=== PATIENT | female | born 1995 | race Caucasian/White ===

== ENCOUNTER 2016-05-27 21:38 | Emergency (ER) | payer OTHER | END 2016-05-27 22:51 | disposition home or self-care (01) | DX: F32.89 Other specified depressive episodes (principal); Z91.5 Personal history of self-harm; F41.0 Panic disorder [episodic paroxysmal anxiety] ==

== ENCOUNTER 2017-02-24 08:00 | Outpatient (CLI) | payer OTHER | END 2017-02-24 08:01 | disposition home or self-care (01) | LOC: LAB.F 08:00 | PROVIDERS: ATTEND Family Medicine | DX: N39.0 Urinary tract infection, site not specified (principal) | CPT/HCPCS: 87086 ==

== ENCOUNTER 2017-08-05 18:06 | Emergency (ER) | payer OTHER ==
[2017-08-05 18:58] LABS: BILIRUBIN,URINE NEGATIVE (NEGATIVE); GLUCOSE, URINE (UA) NEGATIVE (NEGATIVE); KETONES,URINE (UA) NEGATIVE (NEGATIVE); LEUKOCYTE ESTERASE, URINE TRACE (NEGATIVE); NITRITE,URINE NEGATIVE (NEGATIVE); OCCULT BLOOD,URINE MODERATE (NEGATIVE); PROTEIN,URINE NEGATIVE (NEGATIVE); UROBILINOGEN,URINE 0.2 (NORMAL) E.U./dL (NORMAL)
[2017-08-05 19:00] LABS: BASOPHILS % (AUTO) 0.5 %; EOSINOPHILS # (AUTO) 0.2 10^3/uL (0.0-0.7); EOSINOPHILS % (AUTO) 2.3 %; HGB - HEMOGLOBIN 13.8 g/dL (12.0-16.0); LYMPHOCYTES % (AUTO) 26.6 %; MEAN CORPUSCULAR HEMOGLOBIN 28.9 pg (27.0-31.0); MEAN CORPUSCULAR HGB CONC 32.4 g/dL (32.0-36.0); MEAN CORPUSCULAR VOLUME 89.4 fL (81.0-99.0); MEAN PLATELET VOLUME 7.5 fL (7.9-10.8); MONOCYTES # (AUTO) 0.5 10^3/uL (0.0-1.0); MONOCYTES % (AUTO) 7.2 %; NEUTROPHILS # (AUTO) 4.7 10^3/uL (1.5-6.6); NEUTROPHILS % (AUTO) 63.4 %; PLT - PLATELET COUNT 347 10^3/uL (130-450); RED BLOOD COUNT 4.76 10^6/uL (4.20-5.40); RED CELL DISTRIBUTION WIDTH 13.2 % (12.0-15.0); WHITE BLOOD COUNT 7.5 x10^3/uL (4.8-10.8)
[2017-08-05 19:01] LABS: CLARITY,URINE CLEAR (CLEAR); HCG UR QUAL NEGATIVE
[2017-08-05] MEDS ORDERED: ACETAMINOPHEN 325 MG TABLET PO STA (19:04)
--- NOTE | 2017-08-05 19:07 | ED Physician Documentation ---
PD HPI ABD PAIN - Stated complaint Stated Complaint: UPPER ABD PX - Chief complaint Chief Complaint: Abd Pain - History obtained from History obtained from: Patient - History of Present Illness Timing - onset: Other (4 days intermittent RUQ pain radiating to back. No association with eating. Worse with deep breathing, no SOB. She is on control but denies any pedal edema or calf pain. She had an ultrasound done in [place] yesterday which she reports was normal.) Review of Systems Constitutional: denies: Fever, Chills Nose: denies: Rhinorrhea / runny nose, Congestion Cardiac: denies: Chest pain / pressure, Palpitations Respiratory: reports: Cough (mild). denies: Dyspnea GI: reports: Abdominal Pain, Nausea, Diarrhea (once today). denies: Vomiting Musculoskeletal: denies: Neck pain, Back pain PD PAST MEDICAL HISTORY - Past Medical History Psych: Depression, Anxiety, Panic attacks - Past Surgical History Past Surgical History: No - Present Medications Home Medications: Ambulatory Orders Medication Instructions Recorded Confirmed Bcp 08/05/17 Bupropion HCl [Wellbutrin Xl] 450 mg PO 08/05/17 Dextroamphetamine/Amphetamine 10 mg PO 08/05/17 [Adderall 10 mg Tablet] HYDROcod/ACETAM 5/325 [Ames 5/325] 1 - 2 ea PO Q6H PRN #10 tablet 08/05/17 Prazosin HCl [Minipress] 4 mg PO 08/05/17 busPIRone [Buspar] 15 mg PO BID 08/05/17 08/05/17 - Allergies Allergies/Adverse Reactions: Allergies Allergy/AdvReac Type Severity Reaction Status Date / Time No Known Drug Allergies Allergy Verified 08/05/17 18:14 - Social History Does the pt smoke?: No Smoking Status: Never smoker Does the pt drink ETOH?: No Does the pt have substance abuse?: No - Immunizations Immunizations are current?: Yes - POLST Patient has POLST: No PD ED PE NORMAL - Vitals Vital signs reviewed: Yes - General General: Alert and oriented X 3, No acute distress - HEENT HEENT: PERRL, EOMI - Neck Neck: Supple, no meningeal sign, No bony TTP - Cardiac Cardiac: RRR, No murmur - Respiratory Respiratory: No respiratory distress, Clear bilaterally - Abdomen Abdomen: Other (Mild RUQ TTP) - Back Back: No CVA TTP, No spinal TTP - Derm Derm: Normal color, Warm and dry - Extremities Extremities: No edema, No calf tenderness / cord - Neuro Neuro: Alert and oriented X 3, Normal speech - Psych Psych: Normal mood, Normal affect Results - Vitals Vitals: Vital Signs - 24 hr 08/05/17 18:12 Temperature 36.5 C Heart Rate 94 Respiratory 18 Rate Blood Pressure 145/91 H O2 Saturation 100 Oxygen O2 Source Room air - Labs Labs: Laboratory Tests 08/05/17 08/05/17 08/05/17 18:50 18:55 18:55 WBC 7.5 RBC 4.76 Hgb 13.8 Hct 42.5 MCV 89.4 MCH 28.9 MCHC 32.4 RDW 13.2 Plt Count 347 MPV 7.5 L Neut # 4.7 Lymph # 2.0 Carson # 0.5 Eos # 0.2 Baso # 0.0 Absolute Nucleated RBC 0.00 Nucleated RBC % 0.0 D-Dimer Sodium 136 Potassium 4.0 Chloride 105 Carbon Dioxide 23 Anion Gap 8.0 BUN 12 Creatinine 0.8 Estimated GFR (MDRD) 90 Glucose 90 Calcium 9.4 Total Bilirubin 1.0 AST 16 ALT 33 Alkaline Phosphatase 37 L Total Protein 7.4 Albumin 4.1 Globulin 3.3 Albumin/Globulin Ratio 1.2 Lipase 36 Urine Color YELLOW Urine Clarity CLEAR Urine pH 5.0 Ur Specific [place] 1.025 Urine Protein NEGATIVE Urine Glucose (UA) NEGATIVE Urine Ketones NEGATIVE Urine Occult Blood MODERATE H Urine Nitrite NEGATIVE Urine Bilirubin NEGATIVE Urine Urobilinogen 0.2 (NORMAL) Ur Leukocyte Esterase TRACE H Urine RBC 6-10 H Urine WBC 6-10 H Ur Squamous Epith Cells MOD Squamous H Urine Bacteria Few Ur Microscopic Review INDICATED Urine Culture Comments NOT INDICATED Urine HCG, Qual NEGATIVE 08/05/17 08/05/17 19:14 19:30 WBC RBC Hgb Hct MCV MCH MCHC RDW Plt Count MPV Neut # Lymph # Carson # Eos # Baso # Absolute Nucleated RBC Nucleated RBC % D-Dimer < 200.0 L Sodium Potassium Chloride Carbon Dioxide Anion Gap BUN Creatinine Estimated GFR (MDRD) Glucose Calcium Total Bilirubin AST ALT Alkaline Phosphatase Total Protein Albumin Globulin Albumin/Globulin Ratio Lipase Urine Color YELLOW Urine Clarity CLEAR Urine pH 5.0 Ur Specific [place] 1.025 Urine Protein NEGATIVE Urine Glucose (UA) NEGATIVE Urine Ketones NEGATIVE Urine Occult Blood TRACE-INTA Urine Nitrite NEGATIVE Urine Bilirubin NEGATIVE Urine Urobilinogen 0.2 (NORMAL) Ur Leukocyte Esterase NEGATIVE Urine RBC Urine WBC Ur Squamous Epith Cells Urine Bacteria Ur Microscopic Review NOT INDICATED Urine Culture Comments NOT INDICATED Urine HCG, Qual - Rads (name of study) CT A/P and CXR Radiology: EMP read contemporaneously (all normal) PD MEDICAL DECISION MAKING - ED course ED course: 22-year-old woman with several days of right upper quadrant pain. Biliary colic /cholecystitis is considered but given recent negative ultrasound and unremarkable labs this is unlikely, follow-up HIDA scan is advised. Also considered would be pneumonia given mild cough and PE given control use but her d-dimer is negative. Departure - Departure Disposition: Home, Self Care Clinical Impression: Abdominal pain Qualifiers: Abdominal location: right upper quadrant Qualified Code(s): R10.11 - Right upper quadrant pain Condition: Good Record reviewed to determine appropriate education?: Yes Instructions: ED Abdominal Pain Unkn Cause Prescriptions: HYDROcod/ACETAM 5/325 [Ames 5/325] 1 - 2 ea PO Q6H PRN #10 tablet PRN Reason: Pain Comments: Follow-up with your physician, next available appointment. Discuss a HIDA scan and/or upper endoscopy for persistent symptoms. Return for new or worsening symptoms. Your blood pressure was elevated today on check into the emergency department. This does not mean that you have hypertension, it is a common phenomenon to come to the emergency department and have elevated blood pressure. I recommend that you see your primary care physician within the week to have it rechecked when you are feeling better.
[2017-08-05 19:08] LABS: BACTERIA,URINE Few /HPF (None Seen); SQUAMOUS EPITHELIAL CELL,UR MOD Squamous (<= Few)
[2017-08-05 19:13] LABS: ALBUMIN 4.1 g/dL (3.2-5.5); ALBUMIN/GLOBULIN RATIO 1.2 (1.0-2.2); CALCIUM 9.4 mg/dL (8.5-10.3); CREATININE 0.8 mg/dL (0.4-1.0); TOTAL PROTEIN 7.4 g/dL (6.7-8.2)
[2017-08-05 19:38] LABS: BILIRUBIN,URINE NEGATIVE (NEGATIVE); GLUCOSE, URINE (UA) NEGATIVE (NEGATIVE); KETONES,URINE (UA) NEGATIVE (NEGATIVE); LEUKOCYTE ESTERASE, URINE NEGATIVE (NEGATIVE); NITRITE,URINE NEGATIVE (NEGATIVE); OCCULT BLOOD,URINE TRACE-INTA (NEGATIVE); PROTEIN,URINE NEGATIVE (NEGATIVE); UROBILINOGEN,URINE 0.2 (NORMAL) E.U./dL (NORMAL)
[2017-08-05] MEDS ORDERED: IOPAMIDOL-300 100 ML VIAL ONE (19:54)
[2017-08-05 20:08] LABS: CLARITY,URINE CLEAR (CLEAR)
[2017-08-05] MEDS ORDERED: IOPAMIDOL-300 100 ML VIAL IVP ONE (20:18)
--- NOTE | 2017-08-05 20:29 | CT Preliminary Report ---
Exam: CT ABDOMEN/PELVIS W/ IMPRESSION: Normal abdomen and pelvis CT. [facility] SITE ID: [id number]
--- NOTE | 2017-08-05 20:29 | CT Report ---
EXAM: CT ABDOMEN AND PELVIS EXAM DATE: 08/05/2017 08:17 PM. CLINICAL HISTORY: Upper abdominal pain COMPARISONS: None. TECHNIQUE: Routine helical CT imaging was performed through the abdomen and pelvis. IV contrast: Yes . Enteric contrast: No . Reconstructions: Coronal and sagittal. In accordance with CT protocol optimization, one or more of the following dose reduction techniques w ere utilized for this exam: automated exposure control, adjustment of mA and/or KV based on patient s ize, or use of iterative reconstructive technique. FINDINGS: Lung Bases: Unremarkable. Liver: Unremarkable. No suspicious masses. Gallbladder/Bile Ducts: Unremarkable. Spleen: Unremarkable. Pancreas: Unremarkable. Adrenal Glands: Unremarkable. Kidneys: Unremarkable. No suspicious masses or hydronephrosis. Peritoneal Cavity/Bowel: No bowel obstruction or inflammatory process seen. No free air or significan t free fluid. No masses or adenopathy. The appendix is normal. No excessive stool burden. Pelvic Organs: Bladder, uterus, and adnexa appear unremarkable. Vasculature: No aneurysms or other significant abnormality. Bones: No significant abnormality. Other: None. IMPRESSION: Normal abdomen and pelvis CT. [facility] Referring Provider Line: [phone] SITE ID: [id number]
--- NOTE | 2017-08-05 20:29 | XRAY Report ---
EXAM: CHEST RADIOGRAPHY EXAM DATE: 08/05/2017 08:21 PM. CLINICAL HISTORY: Chest pain. COMPARISON: CT abdomen same day. TECHNIQUE: 2 views. FINDINGS: Lungs/Pleura: No focal opacities evident. No pleural effusion. No pneumothorax. Normal volumes. Mediastinum: Heart and mediastinal contours are unremarkable. Other: None. IMPRESSION: Normal 2-view chest radiography. [facility] Referring Provider Line: [phone] SITE ID: [id number]
[2017-08-05] MEDS ORDERED: HYDROcod/ACET 5/325 Prepack 4 PO STA (20:42)
[2017-08-05 21:01] VITALS: BP 150/94
== END 2017-08-05 21:01 | disposition home or self-care (01) ==
LOC: ED 18:06
DX: R10.11 Right upper quadrant pain (principal); R05 Cough; R11.0 Nausea; R03.0 Elevated blood-pressure reading, without diagnosis of hypertension
CPT/HCPCS: 71046; 74177; 80053; 81001; 81003; 81025; 83690; 85025; 85379; 99283; A9270; Q9967; 36415; 87086

== ENCOUNTER 2019-09-12 18:18 | Outpatient (CLI) | payer BC | END 2019-09-12 18:19 | disposition home or self-care (01) | LOC: COV 18:18 | PROVIDERS: ATTEND Family Medicine | DX: R05 Cough (principal); R06.02 Shortness of breath; R06.2 Wheezing; M79.10 Myalgia, unspecified site; R53.83 Other fatigue; R68.83 Chills (without fever); J02.9 Acute pharyngitis, unspecified; R19.7 Diarrhea, unspecified | CPT/HCPCS: 81599 ==

== ENCOUNTER 2020-12-17 08:00 | Outpatient (CLI) | payer BC ==
[2020-12-17 16:09] LABS: HCG,QUALITATIVE BLOOD NEGATIVE
== END 2020-12-17 23:59 | disposition home or self-care (01) ==
LOC: LAB.S 08:00
PROVIDERS: ATTEND Emergency Medicine
DX: N92.6 Irregular menstruation, unspecified (principal)
CPT/HCPCS: 36415; 84703

== ENCOUNTER 2021-03-23 09:03 | Outpatient (CLI) | payer MEDICAID ==
[2021-03-23 09:40] LABS: GTT GLUCOSE,FASTING 100 mg/dL (70-100)
== END 2021-03-23 09:04 | disposition home or self-care (01) ==
LOC: LAB 09:03
PROVIDERS: ATTEND Midwife
DX: O24.419 Gestational diabetes mellitus in pregnancy, unspecified control (principal)
CPT/HCPCS: 36415; 82951; 82952

== ENCOUNTER 2021-04-06 15:51 | Outpatient (CLI) | payer MEDICAID ==
--- NOTE | 2021-04-07 15:50 | Ultrasound Report ---
PROCEDURE: OB First Trimester INDICATIONS: SUPERVISION OF HIGH RISK PREG OUTSIDE/PRIOR DATING DATA: Last menstrual period (LMP): 01/17/2021. LMP-based estimated date of delivery (NIGEL): 10/24/2021. First dating scan (date and location): 04/06/2021. Estimated date of delivery (NIGEL) from first dating scan: 10/22/2021. TECHNIQUE: Real-time scanning was performed of the fetus and maternal pelvic organs, with image documentation. COMPARISON: None FINDINGS: Embryo: Single live intrauterine is identified with crown-rump length measuring 4.8 cm basilio suring 11 weeks 4 days. Heart rate: 160 bpm. Measurement variability in dating: +/- 4 weeks by LMP, +/- 7 days by mean sac diameter (use before 6 weeks gestation if crown-rump length not able to be measured), +/- 5 days by crown-rump length (6-12 weeks gestation). Maternal organs: Ovaries demonstrate a left corpus luteal cyst.. IMPRESSION: 1. Single live intrauterine measuring 11 weeks 4 days. 2. Recommend follow-up imaging at 20-22 weeks for dates and anatomy. Reviewed by: Elyse Cornejo MD on 04/07/2021 3:49 PM PST Approved by: Elyse Cornejo MD on 04/07/2021 3:49 PM PST Station ID: [id number]
== END 2021-04-06 15:52 | disposition home or self-care (01) ==
LOC: DI 15:51
PROVIDERS: ATTEND Obstetrics & Gynecology
DX: O09.91 Supervision of high risk pregnancy, unspecified, first trimester (principal)

== ENCOUNTER 2021-05-12 15:03 | Outpatient (CLI) | payer MEDICAID | END 2021-05-12 15:04 | disposition home or self-care (01) | LOC: LAB 15:03 | PROVIDERS: ATTEND Obstetrics & Gynecology | DX: O09.90 Supervision of high risk pregnancy, unspecified, unspecified trimester (principal) | CPT/HCPCS: 36415 ==

== ENCOUNTER 2021-06-06 08:43 | Outpatient (CLI) | payer MEDICAID ==
--- NOTE | 2021-06-06 11:10 | Ultrasound Report ---
PROCEDURE: OB Detailed Eval INDICATIONS: SUPERVISION HIGH [facility] OUTSIDE/PRIOR DATING DATA: Last menstrual period (LMP): 01/17/2021. LMP-based estimated date of delivery (NIGEL): 10/24/2021. First dating scan (date and location): 04/06/2021. Estimated date of delivery (NIGEL) from first dating scan: 10/22/2021. The below data below was generated using the ultrasound NIGEL of 10/23/2011 TECHNIQUE: Real-time scanning was performed of the fetus, with image documentation and biometric measurements. COMPARISON: 04/06/2021 FINDINGS: General: A single live intrauterine gestation is present. Presentation: Breech Placenta: Placental position is posterior, without previa. Amniotic fluid index: 16.1 cm, within normal limits for gestational age. heart rate: 143 beats per minute. Maternal cervical canal: 3.6 cm long; normal length is 2.5 cm or more. biometrics: Biparietal diameter: 4.7 cm equals 20 weeks 2 days Head circumference: 17.2 cm equals 19 weeks 5 days Abdominal circumference: 15.7 cm equals 20 weeks 6 days Femur length: 3.1 cm equals 19 weeks 5 days Estimated gestational age from initial scan: 20 weeks 2 days Composite gestational age from present scan: 20 weeks 0 days Estimated weight and percentile: 342 g, 44th percentile Measurement variability in biometric dating: +/- 10 days from 12-20 weeks gestation, +/- 2 weeks from 20-30 weeks gestation, +/- 3 weeks at 30 weeks gestation or later. Anatomic survey: Neuro: Ventricles are normal at less than 10 mm. Cisterna magna is normal at 3-11 mm. Cerebellum i s normal in size and morphology. Face: The facial profile is not well seen. Spine: No evidence for spina bifida. Heart: 4-chambered heart is present. The left ventricular outflow tract is not well seen. Stomach: Left-sided stomach is present. Kidneys: No hydronephrosis. Normal is less than 5 mm in 2nd trimester, less than 7 mm in 3rd trimester. Cord: 3 vessel cord has orthotopic insertion. Bladder: Normal in size. Extremities: All 4 extremities are visualized. This study is limited by maternal body habitus. IMPRESSION: Normal interval growth compared to the prior ultrasound examination. The facial profile and the left ventricular outflow tract are not well seen. Please consider short-term follow-up. No anatomic abnormalities are identified. Reviewed by: Arthur Rodriguez MD on 06/06/2021 10:08 AM [facility] Approved by: Arthur Rodriguez MD on 06/06/2021 10:08 AM [facility] Station ID: [id number]
== END 2021-06-06 08:44 | disposition home or self-care (01) ==
LOC: DI 08:43
PROVIDERS: ATTEND Obstetrics & Gynecology
DX: O09.92 Supervision of high risk pregnancy, unspecified, second trimester (principal); Z3A.20 20 weeks gestation of pregnancy

== ENCOUNTER 2021-06-25 09:46 | Outpatient (CLI) | payer MEDICAID ==
--- NOTE | 2021-06-25 10:57 | Ultrasound Report ---
PROCEDURE: OB F/U or Repeat INDICATIONS: SUPERVISION OF OUTSIDE/PRIOR DATING DATA: Last menstrual period (LMP): January 17, 2021. LMP-based estimated date of delivery (NIGEL): October 24, 2021. First dating scan (date ): April 06, 2021. Estimated date of delivery (NIGEL) from first dating scan: October 22, 2021. TECHNIQUE: Real-time scanning was performed of the fetus, with image documentation and biometric measurements. COMPARISON: June 06, 2021 FINDINGS: General: A single living intrauterine gestation is present. Presentation: Vertex Placenta: Placental position is posterior, without previa. Amniotic fluid index: 13 cm, appropriate for gestational age. Deepest pocket: 4.2 cm. heart rate: 160 beats per minute. Maternal cervical canal: 4.1 cm long; normal length is 2.5 cm or more. anatomy: Facial profile: Normal appearance. Outflow tracts: Normal appearance. Other: Not applicable. IMPRESSION: Single intrauterine gestation as detailed above. Reviewed by: Vu Wolff MD on 06/25/2021 10:56 AM PST Approved by: Vu Wolff MD on 06/25/2021 10:56 AM PST Station ID: [id number]
== END 2021-06-25 09:47 | disposition home or self-care (01) ==
LOC: DI 09:46
PROVIDERS: ATTEND Obstetrics & Gynecology
DX: O09.90 Supervision of high risk pregnancy, unspecified, unspecified trimester (principal)

== ENCOUNTER 2021-08-11 11:05 | Outpatient (CLI) | payer MEDICAID ==
[2021-08-11 15:12] LABS: HCT - HEMATOCRIT 37.2 % (37.0-47.0); HGB - HEMOGLOBIN 12.6 g/dL (12.0-16.0); MEAN CORPUSCULAR HEMOGLOBIN 31.5 pg (27.0-31.0); MEAN CORPUSCULAR HGB CONC 33.9 g/dL (32.0-36.0); MEAN PLATELET VOLUME 10.3 fL (7.9-10.8); RED CELL DISTRIBUTION WIDTH 12.4 % (12.0-15.0); WHITE BLOOD COUNT 10.1 x10^3/uL (4.8-10.8)
== END 2021-08-11 11:06 | disposition home or self-care (01) ==
LOC: LAB.S 11:05
PROVIDERS: ATTEND Obstetrics & Gynecology
DX: O09.90 Supervision of high risk pregnancy, unspecified, unspecified trimester (principal)
CPT/HCPCS: 36415; 85027; 86787

== ENCOUNTER 2021-08-24 20:14 | Outpatient (CLI) | payer MEDICAID ==
--- NOTE | 2021-08-25 12:36 | Ultrasound Report ---
PROCEDURE: OB F/U or Repeat INDICATIONS: SUPERVISION OF HIGH RISK OUTSIDE/PRIOR DATING DATA: Last menstrual period (LMP): 01/17/2021. LMP-based estimated date of delivery (NIGEL): 10/24/2021. First dating scan (date and location): 04/06/2021. Estimated date of delivery (NIGEL) from first dating scan: 10/22/2021. The below data below was generated using the ultrasound NIGEL of 10/22/2021. TECHNIQUE: Real-time scanning was performed of the fetus, with image documentation and biometric measurements. COMPARISON: OB ultrasound 06/25/2021. FINDINGS: General: A single living intrauterine gestation is present. Presentation: Vertex Placenta: Placental position is posterior, without previa. Amniotic fluid index: 17.7 cm, normal for gestational age. Largest pocket 4.9 cm. heart rate: 131 beats per minute. Maternal cervical canal: Not visualized. biometrics: Biparietal diameter: 8.2 cm, 32 weeks 6 days Head circumference: 30.6 cm, 34 weeks 0 days Abdominal circumference: 37.9 cm, 32 weeks 0 days Femur length: 6 cm, 31 weeks 3 days Estimated gestational age from initial scan: 31 weeks 4 days. Composite gestational age from present scan: 32 weeks 4 days Estimated weight and percentile: 1902 g, 56th percentile Measurement variability in biometric dating: +/- 10 days from 12-20 weeks gestation, +/- 2 weeks from 20-30 weeks gestation, +/- 3 weeks at 30 weeks gestation or more. Incidental nuchal cord. Maternal ovaries are unremarkable. IMPRESSION: 1. Crawford living intrauterine at 32 weeks 4 days based on today's ultrasound. This is co ncordant with the prior ultrasound dating +/- 3 weeks. Fetus is in the 56th percentile for weight. 2. Normal placenta and amniotic fluid. 3. Incidental nuchal cord. Reviewed by: Marty Chakraborty MD on 08/25/2021 12:34 PM PDT Approved by: Marty Chakraborty MD on 08/25/2021 12:34 PM PDT Station ID: [id number]
== END 2021-08-24 20:15 | disposition home or self-care (01) ==
LOC: DI 20:14
PROVIDERS: ATTEND Obstetrics & Gynecology
DX: O09.93 Supervision of high risk pregnancy, unspecified, third trimester (principal); O24.414 Gestational diabetes mellitus in pregnancy, insulin controlled; Z3A.32 32 weeks gestation of pregnancy

== ENCOUNTER 2021-09-07 16:54 | Outpatient (CLI) | payer MEDICAID ==
[2021-09-07 17:28] VITALS: BP 125/81
--- NOTE | 2021-09-07 20:24 | PROCEDURE REPORT ---
- HPI Current EDU 10/24/21 Gestation 33 Weeks and 2 Days 1 Para 0 Vital Signs Temperature 97.9 F 09/07/21 17:09 Heart Rate 98 09/07/21 17:09 Respiratory Rate 16 09/07/21 17:09 Blood Pressure 125/81 H 09/07/21 17:09 Temperature 97.9 F 09/07/21 17:09 Heart Rate 98 09/07/21 17:09 Respiratory Rate 16 09/07/21 17:09 Blood Pressure 125/81 H 09/07/21 17:09 O2 Saturation - NST Procedure NST Procedure Start Date 09/07/21 Start Time 17:05 Stop Time 17:40 Vibroacoustic Stimulation Used No Patient States Movement Yes EFM 145 mod bambi 15x15 accels no decels TOCO: quiet - Results and Plan Findings/Impression: 26 yo F at 33+2 wga with gestational diabetes here for NST Cat I tracing Cont with twice weekly NST and weekly LIBAN DOS: 09/07/21 NST read: 09/07/21
== END 2021-09-07 17:45 | disposition home or self-care (01) ==
LOC: WFO 16:54 → FBP 16:56 → WFO 17:45
PROVIDERS: ATTEND Obstetrics & Gynecology
DX: O24.419 Gestational diabetes mellitus in pregnancy, unspecified control (principal); Z3A.33 33 weeks gestation of pregnancy
CPT/HCPCS: 59025

== ENCOUNTER 2021-09-09 20:16 | Outpatient (CLI) | payer MEDICAID ==
--- NOTE | 2021-09-10 19:16 | Ultrasound Report ---
PROCEDURE: OB Biophysical Profile INDICATIONS: GDM CLASS A2 OUTSIDE/PRIOR DATING DATA: Last menstrual period (LMP): 01/17/2021. LMP-based estimated date of delivery (NIGEL): 10/24/2021. First dating scan (date and location): 04/06/2021. Estimated date of delivery (NIGEL) from first dating scan: 10/22/2021. The below data below was generated using the ultrasound NIGEL of 10/22/2021 TECHNIQUE: Real-time scanning was performed of the fetus, with image documentation and biometric basilio surements. Biophysical profile was also obtained. COMPARISON: OB ultrasound 08/24/2021, 08/05/2021 FINDINGS: General: A single living intrauterine gestation is present. Presentation: Vertex Placenta: Placental position is posterior, without previa. Amniotic fluid index: 13.5 cm, within normal limits for gestational age. Largest pocket 5.2 cm heart rate: 141 beats per minute. Maternal cervical canal: 5.1 cm long; normal length is 2.5 cm or more. biometrics: Estimated gestational age from initial scan: 33 weeks 6 days Biophysical profile: Tone: 2 points. Movement: 2 points. Respiration: 2 points. Largest pocket of fluid: 2 points. IMPRESSION: Single live intrauterine patency with ultrasound gestational age of 33 weeks 6 days. Previous nuchal cord is not definitively identified. However, recommend continued interval follow-up, as images are suboptimal secondary to positioning. BPP 8 out of 8 Reviewed by: Elyse Cornejo MD on 09/10/2021 7:14 PM PDT Approved by: Elyse Cornejo MD on 09/10/2021 7:14 PM PDT Station ID: [id number]
== END 2021-09-09 20:17 | disposition home or self-care (01) ==
LOC: DI 20:16
PROVIDERS: ATTEND Obstetrics & Gynecology
DX: O24.414 Gestational diabetes mellitus in pregnancy, insulin controlled (principal); Z3A.33 33 weeks gestation of pregnancy

== ENCOUNTER 2021-09-10 10:01 | Outpatient (CLI) | payer MEDICAID ==
[2021-09-10 10:21] VITALS: BP 118/78
--- NOTE | 2021-09-10 13:55 | PROCEDURE REPORT ---
- HPI Diagnosis/Indication for NST: Gestational Diabetes Current EDU 10/24/21 Gestation 33 Weeks and 5 Days 1 Para 0 Vital Signs Temperature 98 F 09/10/21 10:07 Heart Rate 98 09/10/21 10:07 Respiratory Rate 18 09/10/21 10:07 Blood Pressure 118/78 09/10/21 10:07 Temperature 97.9 F 09/10/21 10:22 Heart Rate 99 09/10/21 10:22 Respiratory Rate 17 09/10/21 10:22 Blood Pressure 118/78 09/10/21 10:22 O2 Saturation 100 09/10/21 10:22 - NST Procedure NST Procedure Start Date 09/10/21 Start Time 10:11 Stop Time 10:43 Vibroacoustic Stimulation Used Yes Patient States Movement Yes EFM 135 mod bambi 15x15 accels no decels TOCO: quiet - Results and Plan Findings/Impression: 26 yo F at 33+5 wga with gestational diabetes here for NST Cat I tracing Cont with twice weekly NST and weekly LIBAN DOS: 09/10/21 NST read: 09/10/21
== END 2021-09-10 10:45 | disposition home or self-care (01) ==
LOC: WFO 10:01 → FBP 10:04 → WFO 10:45
PROVIDERS: ATTEND Obstetrics & Gynecology
DX: O24.419 Gestational diabetes mellitus in pregnancy, unspecified control (principal); Z3A.33 33 weeks gestation of pregnancy
CPT/HCPCS: 59025

== ENCOUNTER 2021-09-14 15:44 | Outpatient (CLI) | payer MEDICAID ==
--- NOTE | 2021-09-15 09:36 | Ultrasound Report ---
PROCEDURE: OB Biophysical Profile INDICATIONS: GDM CLASS A2 OUTSIDE/PRIOR DATING DATA: Last menstrual period (LMP): 01/17/2021. LMP-based estimated date of delivery (NIGEL): 10/24/2021. First dating scan (date and location): 04/06/2021. Estimated date of delivery (NIGEL) from first dating scan: 10/22/2021. The below data below was generated using the ultrasound NIGEL of 10/22/2021 TECHNIQUE: Real-time scanning was performed of the fetus, with image documentation and biometric basilio surements. Biophysical profile was also obtained. Endovaginal scanning: Performed COMPARISON: 04/06/2021, 06/25/2021, 08/24/2021. FINDINGS: General: A single living intrauterine gestation is present. Presentation: Vertex Placenta: Placental position is posterior, without previa. Amniotic fluid index: 16.7 cm, normal 5-24 cm.. heart rate: 136 beats per minute. Maternal cervical canal: Closed and 3.3 cm long; normal length is 2.5 cm or more. Estimated gestational age from initial scan: 34 weeks 4 days Biophysical profile: Tone: 2 points. Movement: 2 points. Respiration: 0 points. Largest pocket of fluid: 2 points (5.3 cm). IMPRESSION: Single living intrauterine . Normal amniotic fluid index. Biophysical profile score 6 out of 8 with 0 points for respiration. Reviewed by: Pascale Reeves MD, PhD on 09/15/2021 9:35 AM PDT Approved by: Pascale Reeves MD, PhD on 09/15/2021 9:35 AM PDT Station ID: [id number]
== END 2021-09-14 15:45 | disposition home or self-care (01) ==
LOC: DI 15:44
PROVIDERS: ATTEND Obstetrics & Gynecology
DX: O24.414 Gestational diabetes mellitus in pregnancy, insulin controlled (principal); O09.93 Supervision of high risk pregnancy, unspecified, third trimester; Z3A.34 34 weeks gestation of pregnancy

== ENCOUNTER 2021-09-14 16:54 | Outpatient (CLI) | payer MEDICAID ==
[2021-09-14 17:16] VITALS: BP 128/84
--- NOTE | 2021-09-14 17:42 | PROCEDURE REPORT ---
- HPI Diagnosis/Indication for NST: Gestational Diabetes Vital Signs Temperature 97.9 F 09/14/21 17:15 Heart Rate 78 09/14/21 17:15 Respiratory Rate 18 09/14/21 17:15 Blood Pressure 128/84 H 09/14/21 17:15 O2 Saturation 100 09/14/21 17:15 Temperature 97.9 F 09/14/21 17:16 Heart Rate 78 09/14/21 17:15 Respiratory Rate 18 09/14/21 17:15 Blood Pressure 128/84 H 09/14/21 17:15 O2 Saturation 100 09/14/21 17:15 - NST Procedure NST Procedure Start Time 10:11 Stop Time 10:43 - Results and Plan Plan: Patient is a 26-year-old at 34 weeks, 2 days gestation here for scheduled NST. NST Performed 09/14/21 NST Read 09/14/21 FHT: 130 bpm baseline, moderate variability, accelerations present, no decelerations [place]: Quiescent Diagnosis 34 weeks gestation. Gestational diabetes Continue with twice weekly NST.
== END 2021-09-14 17:45 | disposition home or self-care (01) ==
LOC: WFO 16:54 → FBP 16:56 → WFO 17:45
PROVIDERS: ATTEND Obstetrics & Gynecology
DX: O24.419 Gestational diabetes mellitus in pregnancy, unspecified control (principal); Z3A.34 34 weeks gestation of pregnancy
CPT/HCPCS: 59025

== ENCOUNTER 2021-09-17 09:49 | Outpatient (CLI) | payer MEDICAID ==
[2021-09-17 10:03] VITALS: BP 135/73
--- NOTE | 2021-09-17 18:50 | PROCEDURE REPORT ---
- HPI Current EDU 10/24/21 Gestation 34 Weeks and 5 Days 1 Para 0 Vital Signs Temperature 98.4 F 09/17/21 10:01 Heart Rate 82 09/17/21 10:01 Respiratory Rate 17 09/17/21 10:01 Blood Pressure 135/73 H 09/17/21 10:01 O2 Saturation 100 09/17/21 10:01 Temperature 98.1 F 09/17/21 11:40 Heart Rate 82 09/17/21 10:01 Respiratory Rate 17 09/17/21 10:01 Blood Pressure 135/73 H 09/17/21 10:01 O2 Saturation 100 09/17/21 10:01 - NST Procedure NST Procedure Start Date 09/17/21 Start Time 10:00 Stop Time 11:00 Vibroacoustic Stimulation Used Yes Patient States Movement Yes EFM 130 mod bambi 15x15 accels no decels TOCO: quiet - Results and Plan Plan: - Results and Plan Findings/Impression: 26 yo F at 34+5 wga with gestational diabetes here for NST Cat I tracing Cont with twice weekly NST and weekly LIBAN DOS: 09/17/21 NST read: 09/17/21 DX: IUP at 34+5 wga Gestational diabetes
== END 2021-09-17 11:10 | disposition home or self-care (01) ==
LOC: WFO 09:49 → FBP 09:50 → WFO 11:10
PROVIDERS: ATTEND Obstetrics & Gynecology
DX: O24.419 Gestational diabetes mellitus in pregnancy, unspecified control (principal); Z3A.34 34 weeks gestation of pregnancy
CPT/HCPCS: 59025

== ENCOUNTER 2021-09-21 15:41 | Outpatient (CLI) | payer MEDICAID ==
[2021-09-21 16:53] VITALS: BP 126/89
--- NOTE | 2021-09-21 17:28 | Ultrasound Report ---
PROCEDURE: OB Biophysical Profile INDICATIONS: GDM CLASS A2 OUTSIDE/PRIOR DATING DATA: Last menstrual period (LMP): 01/17/2021. LMP-based estimated date of delivery (NIGEL): 10/24/2021. First dating scan (date and location): 04/06/2021. Estimated date of delivery (NIGEL) from first dating scan: 1022. The below data below was generated using the ultrasound NIGEL of 10/22/2021 TECHNIQUE: Real-time scanning was performed of the fetus, with image documentation and biometric basilio surements. Biophysical profile was also obtained. COMPARISON: OB ultrasound 09/14/2021 FINDINGS: General: A single living intrauterine gestation is present. Presentation: Vertex Placenta: Placental position is posterior, without previa. Amniotic fluid index: 13.5 cm, normal limits for gestational age. Largest pocket 5.5 cm heart rate: 132 beats per minute. Maternal cervical canal: 3.7 cm long; normal length is 2.5 cm or more. biometrics: Estimated gestational age from initial scan: 35 weeks 4 days Biophysical profile: Tone: 2 points. Movement: 2 points. Respiration: 2 points. Largest pocket of fluid: 2 points. Umbilical artery Doppler: 2.7, 2.5, 2.7 IMPRESSION: Single live intrauterine with ultrasound gestational age of 35 weeks 4 days. BPP 8 out of 8 Reviewed by: Elyse Cornejo MD on 09/21/2021 5:26 PM PDT Approved by: Elyse Cornejo MD on 09/21/2021 5:26 PM PDT Station ID: [id number]
--- NOTE | 2021-09-21 22:37 | Labor Flowsheet ---
Labor Flowsheet Datetime Report Generated by CPN: 09/21/2021 22:36 Datetime: 09/21/2021 16:49 VITAL SIGNS NBP Sys/Lucia/Mean (mmHg): 126 : 89 : 96 Pulse: 84 SpO2 (%): 100 Datetime: 09/10/2021 10:42 UTERINE ACTIVITY Frequency (min): 0 ASSESSMENT A Monitor Mode: External US FHR Baseline Rate : 130 Variability: Moderate 6-25 bpm Accelerations: 15X15 Decelerations: None Category: Category I Datetime: 09/10/2021 10:22 Respirations: 17 Temperature (C): 36.6
--- NOTE | 2021-09-22 12:47 | PROCEDURE REPORT ---
- HPI Diagnosis/Indication for NST: Gestational Diabetes Current EDU 10/24/21 Gestation 35 Weeks and 2 Days 1 Para 0 Vital Signs Temperature 98.4 F 09/21/21 16:41 Heart Rate 87 09/21/21 16:41 Respiratory Rate 16 09/21/21 16:41 Blood Pressure 126/89 H 09/21/21 16:41 Temperature 98.4 F 09/21/21 16:41 Heart Rate 87 09/21/21 16:41 Respiratory Rate 16 09/21/21 16:41 Blood Pressure 126/89 H 09/21/21 16:41 O2 Saturation - NST Procedure NST Procedure Start Date 09/21/21 Start Time 16:30 Stop Time 16:54 Vibroacoustic Stimulation Used No Patient States Movement Yes - Results and Plan Findings/Impression: heart rate baseline-125 beats per minutes Moderate variability Accelerations 15x15 BPM Decelerations none toco- irritability noted NST reactive and reassuring Plan: -year-old G1, P0 at 35 weeks 2 days presenting for NST secondary to gestational diabetes. NST is reactive and reassuring. BPP done on the same date was 8 out of 8. .
== END 2021-09-21 17:00 | disposition home or self-care (01) ==
LOC: DI 15:41 → FBP 16:24 → DI 17:00
PROVIDERS: ATTEND Obstetrics & Gynecology
DX: O24.414 Gestational diabetes mellitus in pregnancy, insulin controlled (principal); O09.93 Supervision of high risk pregnancy, unspecified, third trimester; Z3A.35 35 weeks gestation of pregnancy
CPT/HCPCS: 59025

== ENCOUNTER 2021-09-28 16:45 | Outpatient (CLI) | payer MEDICAID ==
[2021-09-28 17:11] VITALS: BP 132/86
--- NOTE | 2021-09-28 19:09 | PROCEDURE REPORT ---
- HPI Current EDU 10/24/21 Gestation 36 Weeks and 2 Days 1 Para 0 Vital Signs Temperature 98.2 F 09/28/21 16:56 Heart Rate 98 09/28/21 16:56 Respiratory Rate 16 09/28/21 16:56 Blood Pressure 132/86 H 09/28/21 16:56 Temperature 98.2 F 09/28/21 16:56 Heart Rate 98 09/28/21 16:56 Respiratory Rate 16 09/28/21 16:56 Blood Pressure 132/86 H 09/28/21 16:56 O2 Saturation - NST Procedure NST Procedure Start Date 09/28/21 Start Time 17:00 Stop Time 17:32 Vibroacoustic Stimulation Used No Patient States Movement Yes EFM 125 mod bambi 15x15 accels no decels TOCO: quiet - Results and Plan Plan: 26 yo F at 36+3 wga with gestational diabetes here for NST Cat I tracing Cont with twice weekly NST and weekly LIBAN DOS: 09/28/21 NST read: 09/28/21 DX: IUP at 36+3 wga Gestational diabetes
== END 2021-09-28 17:35 | disposition home or self-care (01) ==
LOC: WFO 16:45 → FBP 16:47 → WFO 17:35
PROVIDERS: ATTEND Obstetrics & Gynecology
DX: O24.419 Gestational diabetes mellitus in pregnancy, unspecified control (principal); O09.93 Supervision of high risk pregnancy, unspecified, third trimester; Z3A.36 36 weeks gestation of pregnancy
CPT/HCPCS: 59025

== ENCOUNTER 2021-09-28 18:47 | Outpatient (CLI) | payer MEDICAID ==
--- NOTE | 2021-09-29 12:53 | Ultrasound Report ---
PROCEDURE: OB Biophysical Profile INDICATIONS: NST W/ BIOPHYSICAL PROFILE OUTSIDE/PRIOR DATING DATA: Last menstrual period (LMP): 01/17/2021. LMP-based estimated date of delivery (NIGEL): 10/24/2021. First dating scan (date and location): 04/06/2021. Estimated date of delivery (NIGEL) from first dating scan: 10/22/2021. The below data below was generated using the ultrasound NIGEL of 10/22/2021 TECHNIQUE: Real-time scanning was performed of the fetus, with image documentation and biometric basilio surements. Biophysical profile was also obtained. COMPARISON: None. FINDINGS: General: A single living intrauterine gestation is present. Presentation: Vertex Placenta: Placental position is posterior, without previa. Amniotic fluid index: 11.3 cm, normal for gestational age. heart rate: 132 beats per minute. Maternal cervical canal: 4.1 cm long; normal length is 2.5 cm or more. Biophysical profile: Tone: 2 points. Movement: 2 points. Respiration: 2 points. Largest pocket of fluid: 2 points. Umbilical artery Doppler: 2.51, 2.40, 2.66 anatomy: The brain, face, nuchal region, spine, and heart were not evaluated due to advanced ge station. The chest/diaphragm, stomach/abdomen, and lateral renal regions, and urinary bladder/pelvis are normal. A nuchal cord was noted. IMPRESSION: 1. Biophysical profile 8. 2. Umbilical artery Doppler within normal limits. 3. Incidental note was made of a nuchal cord. Reviewed by: Mark Chávez on 09/29/2021 12:51 PM PDT Approved by: Mark Chávez on 09/29/2021 12:51 PM PDT Station ID: [id number]
== END 2021-09-28 18:48 | disposition home or self-care (01) ==
LOC: DI 18:47
PROVIDERS: ATTEND Obstetrics & Gynecology
DX: O24.414 Gestational diabetes mellitus in pregnancy, insulin controlled (principal); O09.90 Supervision of high risk pregnancy, unspecified, unspecified trimester

== ENCOUNTER 2021-09-30 08:00 | Outpatient (CLI) | payer MEDICAID | END 2021-09-30 23:59 | disposition home or self-care (01) | LOC: LAB 08:00 | PROVIDERS: ATTEND Obstetrics & Gynecology | DX: Z36.85 Encounter for antenatal screening for Streptococcus B (principal) | CPT/HCPCS: 87797 ==

== ENCOUNTER 2021-10-01 19:43 | Outpatient (CLI) | payer MEDICAID ==
--- NOTE | 2021-10-01 20:35 | PROCEDURE REPORT ---
- HPI Diagnosis/Indication for NST: Gestational Diabetes Vital Signs Heart Rate 80 10/01/21 19:52 Respiratory Rate 16 10/01/21 19:52 Blood Pressure 139/87 H 10/01/21 19:52 O2 Saturation 100 10/01/21 19:52 Temperature Heart Rate 86 10/01/21 20:01 Respiratory Rate 16 10/01/21 19:52 Blood Pressure 140/86 H 10/01/21 20:01 O2 Saturation 100 10/01/21 19:52 - NST Procedure NST Procedure Start Time 18:00 Stop Time 18:20 - Results and Plan Plan: Patient is a 26-year-old at 36 weeks 5 days gestation here for scheduled NST. NST Performed 10/01/2021 NST Read at 20,022 FHT: 125 bpm baseline, moderate variability, accelerations present, no decelerations. Reactive NST [place]: Quiescent Diagnosis 36 weeks gestation Gestational diabetes Continue with twice weekly NST Blood pressure elevated today. Has not had any previous blood pressure elevate since early . We will continue to monitor at this time.
[2021-10-01 21:05] VITALS: BP 133/78
== END 2021-10-01 20:47 | disposition home or self-care (01) ==
LOC: WFO 19:43 → FBP 19:44 → WFO 20:47
PROVIDERS: ATTEND Obstetrics & Gynecology
DX: O24.415 Gestational diabetes mellitus in pregnancy, controlled by oral hypoglycemic drugs (principal); O09.93 Supervision of high risk pregnancy, unspecified, third trimester; Z3A.36 36 weeks gestation of pregnancy
CPT/HCPCS: 59025

== ENCOUNTER 2021-10-01 21:07 | Outpatient (CLI) | payer MEDICAID ==
--- NOTE | 2021-10-02 02:15 | Ultrasound Report ---
PROCEDURE: OB F/U or Repeat INDICATIONS: GESTATIONAL DIABETES OUTSIDE/PRIOR DATING DATA: Last menstrual period (LMP): 01/17/2021. LMP-based estimated date of delivery (NIGEL): 10/24/2021 First dating scan (date and location): 04/06/2021. Estimated date of delivery (NIGEL) from first dating scan: 10/22/2021. The below data below was generated using the ultrasound NIGEL of 10/22/2021 TECHNIQUE: Real-time scanning was performed of the fetus, with image documentation and biometric measurements. COMPARISON: 09/28/2021, 09/21/2021, 09/14/2021, 09/09/2021. FINDINGS: General: A single living intrauterine gestation is present. Presentation: Vertex Placenta: Placental position is posterior, without previa. Amniotic fluid index: 14.3 cm, within normal limits for gestational age. Largest pocket: 5.3 cm. heart rate: 137 beats per minute. Maternal cervical canal: 5.3 cm long; normal length is 2.5 cm or more. biometrics: Biparietal diameter: 9.1 cm, 36 weeks 5 days Head circumference: 33.4 cm, 38 weeks 1 day Abdominal circumference: 30.6 cm, 34 weeks 4 days Femur length: 6.8 cm, 35 weeks 1 day Estimated gestational age from initial scan: 37 weeks 0 days. Composite gestational age from present scan: 36 weeks 1 day Estimated weight and percentile: 2636 g, 15th percentile Measurement variability in biometric dating: +/- 10 days from 12-20 weeks gestation, +/- 2 weeks from 20-30 weeks gestation, +/- 3 weeks at 30 weeks gestation or more. A single nuchal cord is redemonstrated. IMPRESSION: 1. Single living intrauterine demonstrating interval growth with estimated weight at the 15th percentile. 2. Single nuchal cord redemonstrated. Reviewed by: West Birch MD on 10/02/2021 2:14 AM PDT Approved by: West Birch MD on 10/02/2021 2:14 AM PDT Station ID: [id number]
== END 2021-10-01 21:08 | disposition home or self-care (01) ==
LOC: DI 21:07
PROVIDERS: ATTEND Obstetrics & Gynecology
DX: O24.410 Gestational diabetes mellitus in pregnancy, diet controlled (principal)

== ENCOUNTER 2021-10-05 15:43 | Outpatient (CLI) | payer MEDICAID ==
--- NOTE | 2021-10-05 17:24 | Ultrasound Report ---
PROCEDURE: OB Biophysical Profile INDICATIONS: GDM CALLS A2 OUTSIDE/PRIOR DATING DATA: Last menstrual period (LMP): 01/17/2021. LMP-based estimated date of delivery (NIGEL): 10/24/2021. First dating scan (date and location): 04/06/2021. Estimated date of delivery (NIGEL) from first dating scan: 1622. The below data below was generated using the ultrasound NIGEL of 10/22/2021 TECHNIQUE: Real-time scanning was performed of the fetus, with image documentation and biometric basilio surements. Biophysical profile was also obtained. Endovaginal scanning: No COMPARISON: Prior OB ultrasound dated October 01, 2021 FINDINGS: General: A single living intrauterine gestation is present. Presentation: Vertex Placenta: Placental position is posterior, without previa. Amniotic fluid index: 13.3 cm, normal for gestational age. heart rate: 1:30 beats per minute. Maternal cervical canal: 4.6 cm long; normal length is 2.5 cm or more. Estimated gestational age from initial scan: 37 weeks 4 days Biophysical profile: Tone: 2 points. Movement: 2 points. Respiration: 2 points. Largest pocket of fluid: 2 points. Umbilical artery Doppler: Normal ratios ranging between 2.2 and 2.7. Nuchal cord. IMPRESSION: Normal biophysical profile and cord Doppler. Reviewed by: CARYN Clarke on 10/05/2021 5:22 PM PDT Approved by: Elyse Cornejo MD on 10/05/2021 5:22 PM PDT Station ID: [id number]
== END 2021-10-05 15:44 | disposition home or self-care (01) ==
LOC: DI 15:43
PROVIDERS: ATTEND Obstetrics & Gynecology
DX: O09.93 Supervision of high risk pregnancy, unspecified, third trimester (principal); O24.414 Gestational diabetes mellitus in pregnancy, insulin controlled; Z3A.37 37 weeks gestation of pregnancy

== ENCOUNTER 2021-10-05 16:36 | Outpatient (CLI) | payer MEDICAID ==
[2021-10-05 17:00] VITALS: BP 128/80
--- NOTE | 2021-10-06 20:35 | PROCEDURE REPORT ---
- HPI Diagnosis/Indication for NST: Gestational Diabetes Current EDU 10/24/21 Gestation 37 Weeks and 2 Days 1 Para 0 Vital Signs Temperature 98.2 F 10/05/21 16:51 Heart Rate 90 10/05/21 16:51 Respiratory Rate 16 10/05/21 16:51 Blood Pressure 128/80 10/05/21 16:51 Temperature 98.2 F 10/05/21 16:51 Heart Rate 90 10/05/21 16:51 Respiratory Rate 16 10/05/21 16:51 Blood Pressure 128/80 10/05/21 16:51 O2 Saturation - NST Procedure NST Procedure Start Date 10/05/21 Start Time 16:40 Stop Time 17:16 Vibroacoustic Stimulation Used No Patient States Movement Yes EFM 125 mod bambi 15x15 accels no decels TOCO: quiet - Results and Plan Findings/Impression: 26 yo F at 37+2 wga with gestational diabetes here for NST Cat I tracing Cont with twice weekly NST and weekly LIBAN DOS: 10/05/21 NST read: 10/05/21 DX: IUP at 37+2 wga Gestational diabetes
== END 2021-10-05 17:25 | disposition home or self-care (01) ==
LOC: WFO 16:36 → FBP 16:37 → WFO 17:25
PROVIDERS: ATTEND Obstetrics & Gynecology
DX: O24.415 Gestational diabetes mellitus in pregnancy, controlled by oral hypoglycemic drugs (principal); O09.93 Supervision of high risk pregnancy, unspecified, third trimester; Z3A.37 37 weeks gestation of pregnancy
CPT/HCPCS: 59025

== ENCOUNTER 2021-10-30 02:54 | Emergency (ER) | payer MEDICAID ==
--- NOTE | 2021-10-30 03:03 | ED Physician Documentation ---
PD HPI ABD PAIN - Stated complaint Stated Complaint: R SIDED PX/SOA - Chief complaint Chief Complaint: Abd Pain - History obtained from History obtained from: Patient - History of Present Illness Timing - onset: How many hours ago (1-2) Timing - duration: Hours (1-2) Timing - details: Abrupt onset, Still present Quality: Sharp, Stabbing, Pain Location: RUQ Radiation: Right flank Improved by: No: Laying still, Position Worsened by: Moving, Breathing, Palpation (right upper abd) Associated symptoms: Nausea. No: Fever, Vomiting, Diarrhea, Dysuria Similar symptoms before: No diagnosis (similar episode a few days ago not as intense and lasted just few minutes. Did not seek care.) Recently seen: Admitted (3 weeks post induced VD at 38 weeks, due to GDM and elevated BP the week prior.) Review of Systems Constitutional: denies: Fever, Chills Nose: denies: Rhinorrhea / runny nose, Congestion Throat: denies: Sore throat Cardiac: denies: Chest pain / pressure, Palpitations Respiratory: denies: Cough GI: reports: Abdominal Pain, Nausea. denies: Vomiting, Diarrhea : denies: Dysuria Skin: denies: Rash PD PAST MEDICAL HISTORY - Past Medical History Cardiovascular: Hypertension Psych: Depression, Anxiety, Panic attacks - Past Surgical History Past Surgical History: No - Present Medications Home Medications: Ambulatory Orders Medication Instructions Recorded Confirmed HYDROcod/ACETAM 5/325 [[place] 5/325] 1 ea PO Q6H PRN #12 tablet 10/30/21 Ondansetron Odt [Zofran] 4 mg TL Q6H PRN #10 tablet 10/30/21 - Allergies Allergies/Adverse Reactions: Allergies Allergy/AdvReac Type Severity Reaction Status Date / Time No Known Drug Allergies Allergy Verified 10/30/21 03:00 - Social History Does the pt smoke?: No Smoking Status: Never smoker Does the pt drink ETOH?: No Does the pt have substance abuse?: No - Immunizations Immunizations are current?: Yes - POLST Patient has POLST: No PD ED PE NORMAL - Vitals Vital signs reviewed: Yes - General General: Alert and oriented X 3, Well developed/nourished, Other (appears in signficant pain, guarding RUQ area. ) - Neck Neck: Supple, no meningeal sign, No adenopathy - Cardiac Cardiac: RRR, No murmur - Respiratory Respiratory: Clear bilaterally - Abdomen Abdomen: Normal bowel sounds, Soft, Non distended, No organomegaly, Other (Markedly tender right upper quadrant and right flank to palpation and percussion. There is mild rebound. Some referred tenderness from the left upper quadrant to the right. Lower abdomen not tender.) - Female Female : Deferred - Rectal Rectal: Deferred - Derm Derm: Normal color, Warm and dry - Extremities Extremities: No tenderness to palpate, Normal ROM s pain, No edema, No calf tenderness / cord Results - Vitals Vitals: Vital Signs - 24 hr 10/30/21 10/30/21 10/30/21 02:56 03:07 03:32 Temperature 36.1 C L Heart Rate 87 67 87 Respiratory 22 14 18 Rate Blood Pressure 144/91 H 156/99 H 153/87 H O2 Saturation 100 100 100 10/30/21 10/30/21 10/30/21 04:02 04:30 05:00 Temperature Heart Rate 81 82 75 Respiratory 16 18 15 Rate Blood Pressure 163/98 H 137/78 H 134/74 H O2 Saturation 100 100 100 Oxygen O2 Source Room air - Labs Labs: Laboratory Tests 10/30/21 10/30/21 10/30/21 03:10 03:10 05:03 WBC 8.1 RBC 4.73 Hgb 14.4 Hct 44.3 MCV 93.7 MCH 30.4 MCHC 32.5 RDW 11.9 L Plt Count 273 MPV 9.7 Neut # (Auto) 4.1 Lymph # (Auto) 3.0 [place] # (Auto) 0.5 Eos # (Auto) 0.5 Baso # (Auto) 0.0 Absolute Nucleated RBC 0.00 Nucleated RBC % 0.0 Sodium 138 Potassium 3.6 Chloride 100 L Carbon Dioxide 29 Anion Gap 9.0 BUN 16 Creatinine 0.8 Estimated GFR (MDRD) 87 L Glucose 128 H Calcium 9.4 Total Bilirubin 0.8 AST 24 ALT 21 Alkaline Phosphatase 67 Total Protein 6.5 L Albumin 3.5 Globulin 3.0 Albumin/Globulin Ratio 1.2 Lipase 56 H Urine Color YELLOW Urine Clarity CLEAR Urine pH 7.0 Ur Specific [place] 1.020 Urine Protein NEGATIVE Urine Glucose (UA) NEGATIVE Urine Ketones NEGATIVE Urine Occult Blood SMALL H Urine Nitrite NEGATIVE Urine Bilirubin NEGATIVE Urine Urobilinogen 0.2 (NORMAL) Ur Leukocyte Esterase NEGATIVE Urine RBC 0-5 Urine WBC 0-3 Ur Squamous Epith Cells FEW Squamous Urine Bacteria Rare Ur Microscopic Review INDICATED Urine Culture Comments NOT INDICATED - Rads (name of study) abd/pelvic CT Radiology: Prelim report reviewed (normal gallbladder and biliary tract. No kidney stones nor hydro. moderate stool. No change in lower lung nodule from 2018.), See rad report PD MEDICAL DECISION MAKING - ED course Complexity details: re-evaluated patient (Much less tender and significantly decreased pain with IV Dilaudid Toradol and Zofran. Went to CT scan as awaiting results at this time. Blood pressure was moderately elevated which may be related to the pain but it did persist some after pain was lessened so gave dose of labetalol with improvemen), considered differential (Abrupt right upper quadrant to right flank pain significantly with tender locally. No general peritoneal symptoms. Consideration for gallbladder spasm or biliary obstruction. Consider kidney stone as well.), d/w patient Departure - Departure Disposition: Home, Self Care Clinical Impression: Abdominal pain, RUQ (right upper quadrant), Biliary colic, state Condition: Stable Record reviewed to determine appropriate education?: Yes Instructions: ED Abdominal Pain Gallstone Poss Follow-Up: Alexandra Zabala ARNP [Primary Care Provider] - Seth Bunch MD [Provider Admit Priv/Credential] - Prescriptions: HYDROcod/ACETAM 5/325 [[place] 5/325] 1 ea PO Q6H PRN #12 tablet PRN Reason: Pain Ondansetron Odt [Zofran] 4 mg TL Q6H PRN #10 tablet PRN Reason: Nausea / Vomiting Comments: Your symptoms likely related to a gallbladder spasm. This is more common in later and related to sludge or spasms and not really stones per se. Your CT scan did not show an obvious stone nor inflammation of the gallbladder, but would not really be able to demonstrate a spasm per se. No other acute process. No kidney stones. Stay well-hydrated. Avoid fatty foods in the short-term. Use Tylenol or ibuprofen if needed for mild pains. Add hydrocodone if needed for worse pain occasionally if needed for episodes. Ondansetron if needed for nausea. Your blood pressure was elevated while you are having the pain and may be related to just the adrenaline of it. Recheck your blood pressure however in the next couple of days and see if its elevated again and if so whether it needs medication/treatment. I transmitted prescriptions to the pharmacy. I am prescribing a short course of narcotic pain medication for you. These are potentially dangerous and addictive medications that should be used carefully. These medications may constipate you. Take an gmoy-nhq-nghmpkh stool softener such as docusate twice daily with plenty of water while taking these medications. If you go 24 hours without a bowel movement, take bivj-rmt-pvojate MiraLAX, per package instructions. Do not drink or drive while taking these medications. If you received narcotic or sedating medications while in the emergency department do not drive for 24 hours. Store this medication in a safe, secure place and out of reach of children. It is a violation of federal law to give or sell this medication to another person or to use in a manner other than prescribed. The ED will not refill narcotic prescriptions, including prescriptions lost or stolen. You can dispose of unwanted medications at the [facility] office or at several pharmacies such as [facility].
[2021-10-30] MEDS ORDERED: KETOROLAC 15 MG/ML VIAL IVP STA (03:11)
[2021-10-30] MEDS ORDERED: SODIUM CHLORIDE 0.9% 1,000 ML IV STA (03:11)
[2021-10-30] MEDS ORDERED: HYDROmorphone 1 MG/ML CARPUJECT IVP STA (03:11)
[2021-10-30] MEDS ORDERED: ONDANSETRON 4 MG/2 ML VIAL IVP STA (03:11)
[2021-10-30 03:19] LABS: BASOPHILS % (AUTO) 0.1 %; EOSINOPHILS # (AUTO) 0.5 10^3/uL (0.0-0.7); EOSINOPHILS % (AUTO) 5.6 %; HCT - HEMATOCRIT 44.3 % (37.0-47.0); HGB - HEMOGLOBIN 14.4 g/dL (12.0-16.0); LYMPHOCYTES % (AUTO) 36.7 %; MEAN CORPUSCULAR HEMOGLOBIN 30.4 pg (27.0-31.0); MEAN CORPUSCULAR HGB CONC 32.5 g/dL (32.0-36.0); MEAN CORPUSCULAR VOLUME 93.7 fL (81.0-99.0); MEAN PLATELET VOLUME 9.7 fL (7.9-10.8); MONOCYTES # (AUTO) 0.5 10^3/uL (0.0-1.0); MONOCYTES % (AUTO) 6.6 %; NEUTROPHILS # (AUTO) 4.1 10^3/uL (1.5-6.6); NEUTROPHILS % (AUTO) 50.8 %; PLT - PLATELET COUNT 273 10^3/uL (130-450); RED BLOOD COUNT 4.73 10^6/uL (4.20-5.40); RED CELL DISTRIBUTION WIDTH 11.9 % (12.0-15.0); WHITE BLOOD COUNT 8.1 x10^3/uL (4.8-10.8)
[2021-10-30 03:33] LABS: ALBUMIN 3.5 g/dL (3.2-5.5); ALBUMIN/GLOBULIN RATIO 1.2 (1.0-2.2); BILIRUBIN,TOTAL 0.8 mg/dL (0.2-1.0); CALCIUM 9.4 mg/dL (8.5-10.3); CREATININE 0.8 mg/dL (0.4-1.0); POTASSIUM 3.6 mmol/L (3.5-5.0); TOTAL PROTEIN 6.5 g/dL (6.7-8.2)
[2021-10-30] MEDS ORDERED: LABETALOL 20 MG/4 ML SYRINGE IVP STA (04:07)
[2021-10-30 05:00] VITALS: BP 134/74
[2021-10-30] MEDS ORDERED: ONDANSETRON ODT 4 MG Prepack 2 TL PRN (05:01)
[2021-10-30] MEDS ORDERED: HYDROcod/ACET 5/325 Prepack 4 PO STA (05:01)
[2021-10-30 05:10] LABS: BILIRUBIN,URINE NEGATIVE (NEGATIVE); GLUCOSE, URINE (UA) NEGATIVE (NEGATIVE); KETONES,URINE (UA) NEGATIVE (NEGATIVE); LEUKOCYTE ESTERASE, URINE NEGATIVE (NEGATIVE); NITRITE,URINE NEGATIVE (NEGATIVE); OCCULT BLOOD,URINE SMALL (NEGATIVE); PROTEIN,URINE NEGATIVE (NEGATIVE); UROBILINOGEN,URINE 0.2 (NORMAL) E.U./dL (NORMAL)
[2021-10-30 05:13] LABS: CLARITY,URINE CLEAR (CLEAR)
[2021-10-30 05:16] LABS: BACTERIA,URINE Rare /HPF (None Seen); RBC,URINE 0-5 /HPF (0-5); SQUAMOUS EPITHELIAL CELL,UR FEW Squamous (<= Few); WBC,URINE 0-3 /HPF (0-5)
--- NOTE | 2021-10-30 08:53 | CT Report ---
PROCEDURE: CT abdomen and pelvis without contrast INDICATIONS: RUQ pain to flank, abrupt onset TECHNIQUE: Noncontrast 5 mm thick sections acquired from the diaphragms to the symphysis. 5 mm coronal and sagi ttal reformats were then performed. For radiation dose reduction, the following was used: automated exposure control, adjustment of mA and/or kV according to patient size. COMPARISON: 08/05/2017 FINDINGS: Image quality: Excellent. ABDOMEN: Lung bases: 5 mm nodule in the right lower lobe, additional 6 mm right lower lobe pulmonary nodule. R egion was not assessed on prior CT 2018 Solid organs: Liver and spleen are normal in size. Gallbladder unremarkable Pancreas is normal in contours. No adrenal nodules. Kidneys are normal in size, without hydronephrosis or nephrolithiasis . Peritoneum and bowel: Unenhanced bowel loops demonstrate normal wall thickness and caliber. No free fluid or air. Moderate to fecal debris throughout the colon Nodes and vessels: No retroperitoneal or mesenteric adenopathy by size criteria. Aorta and inferior vena cava are normal in caliber. Miscellaneous: No ventral hernias. PELVIS: Genitourinary: Bladder wall thickness is normal. Miscellaneous: No inguinal hernias or adenopathy. Bones: No suspicious bony lesions. No vertebral body compression fractures. IMPRESSION: 1. No acute CT findings in the abdomen or pelvis. 2. Moderate to fecal debris throughout the colon. 3. Incidental right lower lobe pulmonary nodules. Consider follow-up 6-12 months to assess stability Note: Final report is concordant with preliminary report provided by Geneva Mars Reviewed by: Karlos Lazar MD on 10/30/2021 7:52 AM [facility]U Approved by: Karlos Lazar MD on 10/30/2021 7:52 AM [place] Station ID: [id number]
== END 2021-10-30 05:20 | disposition home or self-care (01) ==
LOC: ED 02:54
DX: K80.50 Calculus of bile duct without cholangitis or cholecystitis without obstruction (principal); I10 Essential (primary) hypertension; R11.0 Nausea
CPT/HCPCS: 36415; 74176; 80053; 81001; 83690; 85025; 96374; 96375; 99284; 99285; J1170; 81003; 87086

== ENCOUNTER 2021-11-02 23:10 | Emergency (ER) | payer MEDICAID ==
[2021-11-02 23:34] LABS: BILIRUBIN,URINE NEGATIVE (NEGATIVE); GLUCOSE, URINE (UA) NEGATIVE (NEGATIVE); KETONES,URINE (UA) NEGATIVE (NEGATIVE); LEUKOCYTE ESTERASE, URINE MODERATE (NEGATIVE); NITRITE,URINE NEGATIVE (NEGATIVE); OCCULT BLOOD,URINE MODERATE (NEGATIVE); PROTEIN,URINE NEGATIVE (NEGATIVE); UROBILINOGEN,URINE 0.2 (NORMAL) E.U./dL (NORMAL)
[2021-11-02 23:48] LABS: BACTERIA,URINE Few /HPF (None Seen); CLARITY,URINE CLEAR (CLEAR); HCG UR QUAL NEGATIVE; RBC,URINE 0-5 /HPF (0-5); SQUAMOUS EPITHELIAL CELL,UR MOD Squamous (<= Few)
[2021-11-02 23:51] LABS: BASOPHILS % (AUTO) 0.1 %; EOSINOPHILS # (AUTO) 0.5 10^3/uL (0.0-0.7); EOSINOPHILS % (AUTO) 4.3 %; HCT - HEMATOCRIT 41.5 % (37.0-47.0); HGB - HEMOGLOBIN 13.6 g/dL (12.0-16.0); LYMPHOCYTES # (AUTO) 2.3 10^3/uL (1.5-3.5); LYMPHOCYTES % (AUTO) 21.5 %; MEAN CORPUSCULAR HEMOGLOBIN 30.8 pg (27.0-31.0); MEAN CORPUSCULAR HGB CONC 32.8 g/dL (32.0-36.0); MEAN CORPUSCULAR VOLUME 93.9 fL (81.0-99.0); MEAN PLATELET VOLUME 9.7 fL (7.9-10.8); MONOCYTES # (AUTO) 0.6 10^3/uL (0.0-1.0); MONOCYTES % (AUTO) 5.6 %; NEUTROPHILS # (AUTO) 7.2 10^3/uL (1.5-6.6); NEUTROPHILS % (AUTO) 68.3 %; PLT - PLATELET COUNT 283 10^3/uL (130-450); RED BLOOD COUNT 4.42 10^6/uL (4.20-5.40); WHITE BLOOD COUNT 10.5 x10^3/uL (4.8-10.8)
[2021-11-03] LABS: ALBUMIN 3.9 g/dL (3.2-5.5); ALBUMIN/GLOBULIN RATIO 1.2 (1.0-2.2); BILIRUBIN,TOTAL 1.2 mg/dL (0.2-1.0); CALCIUM 9.1 mg/dL (8.5-10.3); CREATININE 0.8 mg/dL (0.4-1.0); POTASSIUM 3.7 mmol/L (3.5-5.0); TOTAL PROTEIN 7.2 g/dL (6.7-8.2)
[2021-11-03] MEDS ORDERED: HYDROmorphone 1 MG/ML CARPUJECT IVP STA (00:11)
[2021-11-03] MEDS ORDERED: ONDANSETRON 4 MG/2 ML VIAL IVP STA (00:11)
[2021-11-03] MEDS ORDERED: KETOROLAC 15 MG/ML VIAL IVP STA (00:12)
--- NOTE | 2021-11-03 00:12 | ED Physician Documentation ---
PD HPI ABD PAIN - Stated complaint Stated Complaint: ABD PAIN - Chief complaint Chief Complaint: Abd Pain - History obtained from History obtained from: Patient - History of Present Illness Timing - onset: Enter time (1999), Today Timing - duration: Hours Timing - details: Abrupt onset, Still present Quality: Cramping, Sharp, Pain Location: RUQ Radiation: Right flank Improved by: Laying still Worsened by: Moving, Breathing, Position, Palpation Associated symptoms: Nausea. No: Vomiting Similar symptoms before: Diagnosis (gallbladder 'spasm') Recently seen: Emergency Dept - Additional information Additional information: 26-year-old Cynthia Thakkar is 3 weeks and she was seen in the emergency department 3 days ago with right upper quadrant abdominal pain and a CT scan of the abdomen pelvis was obtained without abnormalities demonstrated. No stones were seen. Her case was consistent with gallstones and ultrasound was not available. She was discharged with [facility] for pain and follow-up. She returns to the emergency department this evening after having a peanut butter and jelly sandwich and developing right upper quadrant abdominal pain. Her pain is severe and has not been relieved by the [place]. Review of Systems Constitutional: denies: Fever, Chills Eyes: denies: Decreased vision Ears: denies: Ear pain Nose: denies: Congestion Throat: denies: Sore throat Cardiac: denies: Chest pain / pressure, Palpitations Respiratory: denies: Dyspnea, Cough GI: reports: Abdominal Pain, Nausea : denies: Dysuria, Frequency Skin: denies: Rash Musculoskeletal: reports: Back pain. denies: Neck pain, Extremity pain PD PAST MEDICAL HISTORY - Past Medical History Cardiovascular: Hypertension Psych: Depression, Anxiety, Panic attacks - Past Surgical History Past Surgical History: No - Present Medications Home Medications: Ambulatory Orders Medication Instructions Recorded Confirmed HYDROcod/ACETAM 5/325 [[place] 5/325] 1 ea PO Q6H PRN #12 tablet 10/30/21 Ondansetron Odt [Zofran] 4 mg TL Q6H PRN #10 tablet 10/30/21 - Allergies Allergies/Adverse Reactions: Allergies Allergy/AdvReac Type Severity Reaction Status Date / Time No Known Drug Allergies Allergy Verified 11/02/21 23:18 - Social History Does the pt smoke?: No Smoking Status: Never smoker Does the pt drink ETOH?: No Does the pt have substance abuse?: No - Immunizations Immunizations are current?: Yes - POLST Patient has POLST: No PD ED PE NORMAL - Vitals Vital signs reviewed: Yes - General General: Alert and oriented X 3, Well developed/nourished, Other (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 ) - HEENT HEENT: Atraumatic, PERRL, EOMI - Neck Neck: Supple, no meningeal sign, No bony TTP - Cardiac Cardiac: RRR, No murmur - Respiratory Respiratory: No respiratory distress, Clear bilaterally - Abdomen Abdomen: Normal bowel sounds, Soft, Non distended, No organomegaly, Other (RUQ tenderness is obvious on exam. A hand placed over the gallbladder arrests respirations. There is not other tenderness to exam. 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, No motor deficit, No sensory deficit, Normal speech Eye Opening: Spontaneous Motor: Obeys Commands Verbal: Oriented GCS Score: 15 - Psych Psych: Normal mood Results - Vitals Vitals: Vital Signs - 24 hr 11/02/21 23:12 Temperature 36.3 C L Heart Rate 96 Respiratory 20 Rate Blood Pressure 152/98 H O2 Saturation 95 Oxygen O2 Source Room air - Labs Labs: Laboratory Tests 11/02/21 11/02/21 11/02/21 23:25 23:40 23:40 WBC 10.5 RBC 4.42 Hgb 13.6 Hct 41.5 MCV 93.9 MCH 30.8 MCHC 32.8 RDW 12.0 Plt Count 283 MPV 9.7 Neut # (Auto) 7.2 H Lymph # (Auto) 2.3 [place] # (Auto) 0.6 Eos # (Auto) 0.5 Baso # (Auto) 0.0 Absolute Nucleated RBC 0.00 Nucleated RBC % 0.0 Sodium 137 Potassium 3.7 Chloride 100 L Carbon Dioxide 28 Anion Gap 9.0 BUN 12 Creatinine 0.8 Estimated GFR (MDRD) 87 L Glucose 139 H Calcium 9.1 Total Bilirubin 1.2 H AST 94 H ALT 108 H Alkaline Phosphatase 98 Total Protein 7.2 Albumin 3.9 Globulin 3.3 Albumin/Globulin Ratio 1.2 Lipase 59 H Urine Color YELLOW Urine Clarity CLEAR Urine pH 7.0 Ur Specific [place] 1.010 Urine Protein NEGATIVE Urine Glucose (UA) NEGATIVE Urine Ketones NEGATIVE Urine Occult Blood MODERATE H Urine Nitrite NEGATIVE Urine Bilirubin NEGATIVE Urine Urobilinogen 0.2 (NORMAL) Ur Leukocyte Esterase MODERATE H Urine RBC 0-5 Urine WBC 4-5 Ur Squamous Epith Cells MOD Squamous H Urine Bacteria Few Ur Microscopic Review INDICATED Urine Culture Comments NOT INDICATED Urine HCG, Qual NEGATIVE Procedures - Bedside sono Bedside sono by EMP: With use of bedside ultrasound the gallbladder is imaged it is sonographically tender there is no gallbladder wall thickening or pericholecystic fluid. There are multiple small stones that are shadowing. These are 1-2mm stones. PD MEDICAL DECISION MAKING - ED course Complexity details: reviewed old records, reviewed results, re-evaluated patient, considered differential, d/w patient, d/w family ED course: 26-year-old female with an acute gallbladder attack appears very uncomfortable on arrival she is administered intravenous Dilaudid, Zofran and Toradol. She has marked improvement in her pain. I was able to perform bedside ultrasound demonstrating multiple small shadowing stones. Her biochemical profile is concerning for the possibility of obstruction. I believe her stones are small enough they may even pass the obstruction. Her bilirubin is 1.2. I shared these findings with the patient and recommended she get a formal ultrasound and follow-up with the surgeon. I have asked her to follow-up at [facility] if she has persistence of her pain with the thought that she may have obstruction. Ultrasound is not available this evening to further delineate. The patient appears to have responded well to treatment. Departure - Departure Disposition: 01 Home, Self Care Clinical Impression: Gallstones Condition: Stable Instructions: ED Gallstone W Biliary Colic Follow-Up: Alexandra Sosa ARNP [Primary Care Provider] - [facility] [Provider Group] Comments: Cynthia today it looks like you have small stones in your gallbladder. My recommendation is to call Pauline sosa tomorrow to schedule an outpatient ultrasound of your gallbladder. Follow-up with the surgeon after you have your gallbladder ultrasound. There is evidence of possible obstruction. The stones are small and may get out of the gallbladder and get caught in the common bile duct. Your biochemical profile is suggestive of this but very early and not confirmatory. If you have persistent continuous pain follow-up at [facility] as you may need to have a specific procedure done that is not available at this hospital.
[2021-11-03 02:25] VITALS: BP 143/97
== END 2021-11-03 02:28 | disposition home or self-care (01) ==
LOC: ED 23:10
DX: O99.63 Diseases of the digestive system complicating the puerperium (principal); K80.20 Calculus of gallbladder without cholecystitis without obstruction
CPT/HCPCS: 36415; 80053; 81001; 81025; 83690; 85025; 96374; 96375; 99283; 99284; J1170; 81003; 87086

== ENCOUNTER 2022-10-13 10:00 | Outpatient (CLI) | payer MEDICAID | END 2022-10-13 10:01 | disposition home or self-care (01) | LOC: MERGE 10:00 → LAB 10:00 | PROVIDERS: ATTEND Obstetrics & Gynecology | DX: Z86.32 Personal history of gestational diabetes (principal) | CPT/HCPCS: 81599; 82105 ==

== ENCOUNTER 2022-11-08 07:14 | Outpatient (CLI) | payer MEDICAID ==
--- NOTE | 2022-11-08 16:44 | Ultrasound Report ---
PROCEDURE: OB Detailed Eval INDICATIONS: SUPERVISION HIGH RISK , HX GEST DIABETES OUTSIDE/PRIOR DATING DATA: Last menstrual period (LMP): 06/21/2022. LMP-based estimated date of delivery (NIGEL): 03/28/2023. First dating scan (date and location): 08/23/2022. Estimated date of delivery (NIGEL) from first dating scan: 04/01/2023. TECHNIQUE: Real-time scanning was performed of the fetus, with image documentation and biometric measurements. Endovaginal scanning: No COMPARISON: 10/05/2021 FINDINGS: General: A single living intrauterine gestation is present. Presentation: Cephalic Placenta: Placental position is posterior, without previa. Amniotic fluid index: 12.8 cm, within normal limits for gestational age. heart rate: 143 beats per minute. Maternal cervical canal: 4.1 cm long; normal length is 2.5 cm or more. biometrics: Biparietal diameter: 46 mm; 20 weeks 0 days Head circumference: 173 mm; 19 weeks 6 days Abdominal circumference: 151 mm; 20 weeks 2 days Femur length: 3 2 mm; 19 weeks 6 days Estimated gestational age from initial scan: 19 weeks 3 days Composite gestational age from present scan: 20 weeks 0 days Estimated weight and percentile: 333 g, which is at the 83rd percentile for gestational age. Measurement variability in biometric dating: +/- 10 days from 12-20 weeks gestation, +/- 2 weeks from 20-30 weeks gestation, +/- 3 weeks at 30 weeks gestation or later. Anatomic survey: Neuro: Ventricles are normal at less than 10 mm. Cisterna magna is normal at 3-11 mm. Cerebellum i s normal in size and morphology. Nuchal skin fold: Normal at less than 6 mm between 14 and 20 weeks gestational age. Face: Nose and lips, facial profile are normal. Spine: No evidence for spina bifida. Heart: 4-chambered heart is present, with normal ventricular outflow tracts. Diaphragm: Diaphragm is intact. Stomach: Left-sided stomach is present. Kidneys: No hydronephrosis. Normal is less than 5 mm in 2nd trimester, less than 7 mm in 3rd trimester. Cord: 3 vessel cord has orthotopic insertion. Bladder: Normal in size. Extremities: All 4 extremities are visualized. IMPRESSION: 1. Single living intrauterine gestation. 2. Normal survey of anatomy. 3. Appropriate interval growth. Reviewed by: Cristofer Allan MD on 11/08/2022 4:43 PM PDT Approved by: Cristofer Allan MD on 11/08/2022 4:43 PM PDT Station ID: [id number]
== END 2022-11-08 07:15 | disposition home or self-care (01) ==
LOC: DI 07:14
PROVIDERS: ATTEND Obstetrics & Gynecology
DX: O09.892 Supervision of other high risk pregnancies, second trimester (principal); Z86.32 Personal history of gestational diabetes; Z3A.20 20 weeks gestation of pregnancy

== ENCOUNTER 2023-01-08 08:56 | Outpatient (CLI) | payer MEDICAID ==
--- NOTE | 2023-01-08 20:23 | Ultrasound Report ---
PROCEDURE: OB F/U or Repeat INDICATIONS: SUPERVISION OF HIGH RISK OUTSIDE/PRIOR DATING DATA: Last menstrual period (LMP): 06/21/2022. LMP-based estimated date of delivery (NIGEL): 03/28/2023. First dating scan (date and location): 08/23/2022. Estimated date of delivery (NIGEL) from first dating scan: 04/01/2023. TECHNIQUE: Real-time scanning was performed of the fetus, with image documentation and biometric measurements. Endovaginal scanning: Not performed. COMPARISON: 11/08/2022 FINDINGS: General: A single live intrauterine gestation is present. Presentation: Cephalic Placenta: Placental position is posterior, without previa. Amniotic fluid index: 17.8 cm, within normal limits for gestational age. heart rate: 150 beats per minute. Maternal cervical canal: 4.6 cm long; normal length is 2.5 cm or more. biometrics: Biparietal diameter: 7.4 cm equals 29 weeks 5 days Head circumference: 27.8 cm equals 30 weeks 3 days Abdominal circumference: 22.1 cm equals 26 weeks 4 days Femur length: 4.9 cm equals 26 weeks 5 days Estimated gestational age from initial scan: 28 weeks 1 day Composite gestational age from present scan: 28 weeks 3 days Estimated weight and percentile: 1038 g, 11th percentile Measurement variability in biometric dating: +/- 10 days from 12-20 weeks gestation, +/- 2 weeks from 20-30 weeks gestation, +/- 3 weeks at 30 weeks gestation or more. Other: Not applicable. IMPRESSION: Normal interval growth compared to the prior ultrasound examination. Reviewed by: Arthur Rodriguez MD on 01/08/2023 7:21 PM PHU Approved by: Arthur Rodriguez MD on 01/08/2023 7:21 PM PHU Station ID: [id number]
== END 2023-01-08 08:57 | disposition home or self-care (01) ==
LOC: DI 08:56
PROVIDERS: ATTEND Obstetrics & Gynecology
DX: O09.93 Supervision of high risk pregnancy, unspecified, third trimester (principal); Z3A.28 28 weeks gestation of pregnancy

== ENCOUNTER 2023-01-18 09:55 | Outpatient (CLI) | payer MEDICAID ==
[2023-01-18 10:16] LABS: HCT - HEMATOCRIT 38.7 % (37.0-47.0); HGB - HEMOGLOBIN 13.2 g/dL (12.0-16.0); MEAN CORPUSCULAR HEMOGLOBIN 31.5 pg (27.0-31.0); MEAN CORPUSCULAR HGB CONC 34.1 g/dL (32.0-36.0); MEAN CORPUSCULAR VOLUME 92.4 fL (81.0-99.0); MEAN PLATELET VOLUME 9.6 fL (7.9-10.8); RED BLOOD COUNT 4.19 10^6/uL (4.20-5.40); RED CELL DISTRIBUTION WIDTH 12.6 % (12.0-15.0); WHITE BLOOD COUNT 10.1 x10^3/uL (4.8-10.8)
[2023-01-18 10:31] LABS: ALBUMIN 3.6 g/dL (3.2-5.5); ALBUMIN/GLOBULIN RATIO 1.3 (1.0-2.2); BILIRUBIN,TOTAL 0.6 mg/dL (0.2-1.0); CALCIUM 9.2 mg/dL (8.5-10.3); CREATININE 0.6 mg/dL (0.6-1.3); POTASSIUM 3.6 mmol/L (3.5-4.5); TOTAL PROTEIN 6.3 g/dL (6.4-8.9)
[2023-01-18 10:34] LABS: CREATININE,URINE 91.6 mg/dL; PROTEIN/CREATININE RATIO,URINE 0.2 (<=0.2)
[2023-01-18 12:10] LABS: ESTIMATED AVERAGE GLUCOSE 105 mg/dL (70-100); HEMOGLOBIN A1c% 5.3 % (4.27-6.07)
== END 2023-01-18 09:56 | disposition home or self-care (01) ==
LOC: LAB 09:55
PROVIDERS: ATTEND Obstetrics & Gynecology
DX: O09.92 Supervision of high risk pregnancy, unspecified, second trimester (principal); O24.419 Gestational diabetes mellitus in pregnancy, unspecified control; O99.212 Obesity complicating pregnancy, second trimester; Z3A.00 Weeks of gestation of pregnancy not specified
CPT/HCPCS: 36415; 80053; 82570; 83036; 84156; 85027

== ENCOUNTER 2023-01-30 13:27 | Outpatient (CLI) | payer MEDICAID ==
--- NOTE | 2023-01-30 15:01 | Ultrasound Report ---
PROCEDURE: OB Biophysical Profile INDICATIONS: GDM, CLASS A2 OUTSIDE/PRIOR DATING DATA: Last menstrual period (LMP): 07/11/2022. LMP-based estimated date of delivery (NIGEL): 03/28/2023. First dating scan (date and location): 08/23/2022. Estimated date of delivery (NIGEL) from first dating scan: 04/01/2023. The below data below was generated using the ultrasound NIGEL of 04/01/2023 TECHNIQUE: Real-time scanning was performed of the fetus, with image documentation and biometric basilio surements. Biophysical profile was also obtained. COMPARISON: OB ultrasound 01/08/2023 FINDINGS: General: A single living intrauterine gestation is present. Presentation: Vertex Placenta: Placental position is posterior, without previa. Amniotic fluid index: 13.6 cm, within normal limits for gestational age. heart rate: 166 beats per minute. Maternal cervical canal: 4.3 cm long; normal length is 2.5 cm or more. biometrics: Estimated gestational age from initial scan: 31 weeks 4 days Biophysical profile: Tone: 2 points. Movement: 2 points. Respiration: 2 points. Largest pocket of fluid: 2 points. Umbilical artery Doppler: 4.0, 2.9, 2.9 IMPRESSION: Single live intrauterine with ultrasound gestational age of 31 weeks 4 days. BPP 8 out of 8. Umbilical artery Doppler ratios demonstrate one out of 3 measurements elevated measuring 4.0. Reviewed by: Elyse Cornejo MD on 01/30/2023 3:00 PM PDT Approved by: Elyse Cornejo MD on 01/30/2023 3:00 PM PDT Station ID: [id number]
== END 2023-01-30 13:28 | disposition home or self-care (01) ==
LOC: DI 13:27
PROVIDERS: ATTEND Obstetrics & Gynecology
DX: O24.419 Gestational diabetes mellitus in pregnancy, unspecified control (principal); Z3A.31 31 weeks gestation of pregnancy

== ENCOUNTER 2023-02-13 10:14 | Outpatient (CLI) | payer MEDICAID ==
[2023-02-13 10:46] VITALS: BP 118/74
--- NOTE | 2023-02-14 22:08 | PROCEDURE REPORT ---
- HPI Diagnosis/Indication for NST: Gestational Diabetes Current EDU 03/28/23 Gestation 33 Weeks and 6 Days 2 Para 1 Vital Signs Temperature 98.2 F 02/13/23 10:31 Heart Rate 96 02/13/23 10:31 Respiratory Rate 18 02/13/23 10:31 Blood Pressure 118/74 02/13/23 10:31 Temperature 98.2 F 02/13/23 10:31 Heart Rate 96 02/13/23 10:31 Respiratory Rate 18 02/13/23 10:31 Blood Pressure 118/74 02/13/23 10:31 O2 Saturation If not protocol: Oxygen Flow, liters/minute - NST Procedure NST Procedure Start Date 02/13/23 Start Time 10:27 Stop Time 10:55 Vibroacoustic Stimulation Used No Patient States Movement Yes EFM: 130s, moderate variability, positive 15x15 accelerations, no decelerations [place]: no NST reactive/Cat 1 Performed and read 02/13/23 - Results and Plan Plan: 27yo at 33.6w presenting for scheduled NST for GDMA2 - NST reactive - Follow up as scheduled
== END 2023-02-13 11:00 | disposition home or self-care (01) ==
LOC: WFO 10:14 → FBP 10:17 → WFO 11:00
PROVIDERS: ATTEND Obstetrics & Gynecology
DX: O24.419 Gestational diabetes mellitus in pregnancy, unspecified control (principal); Z3A.33 33 weeks gestation of pregnancy
CPT/HCPCS: 59025

== ENCOUNTER 2023-02-13 13:22 | Outpatient (CLI) | payer MEDICAID ==
--- NOTE | 2023-02-13 16:23 | Ultrasound Report ---
PROCEDURE: OB Biophysical Profile INDICATIONS: GDM, CLASS A2 OUTSIDE/PRIOR DATING DATA: Last menstrual period (LMP): 06/21/2022. LMP-based estimated date of delivery (NIGEL): 03/28/2023. First dating scan (date and location): 08/23/2022. Estimated date of delivery (NIGEL) from first dating scan: 04/01/2023. The below data below was generated using the ultrasound NIGEL of 04/01/2023 TECHNIQUE: Real-time scanning was performed of the fetus, with image documentation and biometric basilio surements. Biophysical profile was also obtained. Spectral and Doppler evaluation of the umbilical artery was performed. Endovaginal scanning: Not performed COMPARISON: 02/06/2023 FINDINGS: General: A single living intrauterine gestation is present. Presentation: Vertex Placenta: Placental position is posterior, without previa. Amniotic fluid index: 14.7 cm, 52nd percentile for gestational age. heart rate: 129 beats per minute. Maternal cervical canal: 3.7 cm long; normal length is 2.5 cm or more. Biophysical profile: Tone: 2 points. Movement: 2 points. Respiration: 2 points. Largest pocket of fluid: 2 points. Umbilical artery Doppler: Normal waveform. SD ratio measures 2.8 through 3.4. IMPRESSION: Single living intrauterine at 33 weeks 2 days, NIGEL of 04/01/2023. BPP 8 of 8. Normal umbilical artery waveform. Reviewed by: Darwin Casillas on 02/13/2023 4:22 PM PDT Approved by: Darwin Casillas on 02/13/2023 4:22 PM PDT Station ID: [id number]
== END 2023-02-13 13:23 | disposition home or self-care (01) ==
LOC: DI 13:22
PROVIDERS: ATTEND Obstetrics & Gynecology
DX: O24.419 Gestational diabetes mellitus in pregnancy, unspecified control (principal); Z3A.33 33 weeks gestation of pregnancy

== ENCOUNTER 2023-02-16 09:39 | Outpatient (CLI) | payer MEDICAID ==
--- NOTE | 2023-02-16 10:26 | PROCEDURE REPORT ---
- HPI Diagnosis/Indication for NST: Gestational Diabetes - Results and Plan Plan: Patient is a 27-year-old -0-0-1 at 34 weeks 2 days gestation here for scheduled NST. NST Performed 02/16/2023 NST Read 02/16/2023 FHT: 125 bpm baseline, moderate variability, accelerations present, no decelerations. Reactive NST [place]: Quiescent Diagnosis 34 weeks gestation Gestational diabetes Continue with twice-weekly NST.
[2023-02-16 10:29] VITALS: BP 126/80
== END 2023-02-16 10:30 | disposition home or self-care (01) ==
LOC: WFO 09:39 → FBP 09:50 → WFO 10:30
PROVIDERS: ATTEND Obstetrics & Gynecology
DX: O24.414 Gestational diabetes mellitus in pregnancy, insulin controlled (principal); Z3A.34 34 weeks gestation of pregnancy
CPT/HCPCS: 59025

== ENCOUNTER 2023-02-20 10:02 | Outpatient (CLI) | payer MEDICAID ==
[2023-02-20 11:12] VITALS: BP 116/70; O2SAT 100
--- NOTE | 2023-02-20 11:39 | PROCEDURE REPORT ---
- HPI Diagnosis/Indication for NST: Gestational Diabetes Vital Signs Temperature 97.9 F 02/20/23 10:15 Heart Rate 92 02/20/23 10:15 Respiratory Rate 16 02/20/23 10:15 Blood Pressure 116/70 02/20/23 10:15 Temperature 97.9 F 02/20/23 10:20 Heart Rate 92 02/20/23 10:20 Respiratory Rate 16 02/20/23 10:20 Blood Pressure 116/70 02/20/23 10:20 O2 Saturation 100 02/20/23 10:20 If not protocol: Oxygen Flow, liters/minute - NST Procedure NST Procedure Start Time 09:47 Stop Time 10:24 125 mod bambi + A cells no D cells reactive - Results and Plan Findings/Impression: D/C home for scheduled ANC precautions reviewed Plan: D/C home for scheduled ANC precautions reviewed.
== END 2023-02-20 11:40 | disposition home or self-care (01) ==
LOC: WFO 10:02 → FBP 10:03 → WFO 11:40
PROVIDERS: ATTEND Obstetrics & Gynecology
DX: O24.419 Gestational diabetes mellitus in pregnancy, unspecified control (principal); Z3A.34 34 weeks gestation of pregnancy
CPT/HCPCS: 59025

== ENCOUNTER 2023-02-20 12:30 | Outpatient (CLI) | payer MEDICAID ==
--- NOTE | 2023-02-20 15:58 | Ultrasound Report ---
PROCEDURE: OB Biophysical Profile INDICATIONS: GDM, CLASS A2 OUTSIDE/PRIOR DATING DATA: Last menstrual period (LMP): 06/21/2022. LMP-based estimated date of delivery (NIGEL): 03/28/2023. First dating scan (date and location): 08/23/2022. Estimated date of delivery (NIGEL) from first dating scan: 04/01/2023. The below data below was generated using the ultrasound NIGEL of 04/01/2023 TECHNIQUE: Real-time scanning was performed of the fetus, with image documentation and biometric basilio surements. Biophysical profile was also obtained. COMPARISON: OB ultrasound 02/13/2023. FINDINGS: General: A single living intrauterine gestation is present. Presentation: Cephalic Placenta: Placental position is posterior, without previa. Amniotic fluid index: 13.9 cm, normal for gestational age. Largest pocket 4.5 cm. heart rate: 124 beats per minute. Maternal cervical canal: 3.4 cm long; normal length is 2.5 cm or more. Left renal pelvis measures 6 mm. Estimated gestational age from initial scan: 34 weeks 2 days. Biophysical profile: Tone: 2 points. Movement: 2 points. Respiration: 2 points. Largest pocket of fluid: 2 points. Umbilical artery Doppler: 2.36; 2.72; 3.05. Preserved diastolic flow. Maternal adnexa are unremarkable. IMPRESSION: 1. [place] living intrauterine at 34 weeks 2 days based on prior dating. 2. Normal placenta and amniotic fluid. 3. Normal biophysical profile. Score 8 out of 8. Umbilical artery Doppler is within normal limits.. Reviewed by: Marty Chakraborty MD on 02/20/2023 3:56 PM PDT Approved by: Marty Chakraborty MD on 02/20/2023 3:56 PM PDT Station ID: [id number]
== END 2023-02-20 12:31 | disposition home or self-care (01) ==
LOC: DI 12:30
PROVIDERS: ATTEND Obstetrics & Gynecology
DX: O24.419 Gestational diabetes mellitus in pregnancy, unspecified control (principal); Z3A.34 34 weeks gestation of pregnancy

== ENCOUNTER 2023-02-23 09:50 | Outpatient (CLI) | payer MEDICAID ==
[2023-02-23 10:11] VITALS: BP 131/83
--- NOTE | 2023-02-23 17:09 | PROCEDURE REPORT ---
- HPI Diagnosis/Indication for NST: Gestational Diabetes Current EDU 03/28/23 Gestation 35 Weeks and 2 Days 2 Para 1 Vital Signs Temperature 97.7 F 02/23/23 10:01 Heart Rate 85 02/23/23 10:01 Respiratory Rate 18 02/23/23 10:01 Blood Pressure 131/83 H 02/23/23 10:01 Temperature 97.7 F 02/23/23 10:01 Heart Rate 85 02/23/23 10:01 Respiratory Rate 18 02/23/23 10:01 Blood Pressure 131/83 H 02/23/23 10:01 O2 Saturation If not protocol: Oxygen Flow, liters/minute 130 mod bambi + A cells no D cells reactive - NST Procedure NST Procedure Start Date 02/23/23 Start Time 09:58 Stop Time 10:35 Vibroacoustic Stimulation Used No Patient States Movement Yes - Results and Plan Findings/Impression: reactive NST Plan: doing well, OK to D/C home with regular precautions
== END 2023-02-23 10:35 | disposition home or self-care (01) ==
LOC: WFO 09:50 → FBP 09:52 → WFO 10:35
PROVIDERS: ATTEND Obstetrics & Gynecology
DX: O24.419 Gestational diabetes mellitus in pregnancy, unspecified control (principal); Z3A.35 35 weeks gestation of pregnancy
CPT/HCPCS: 59025

== ENCOUNTER 2023-02-25 10:17 | Outpatient (CLI) | payer MEDICAID ==
[2023-02-25 10:46] LABS: BILIRUBIN,URINE NEGATIVE (NEGATIVE); GLUCOSE, URINE (UA) >=1000 mg/dL (NEGATIVE); KETONES,URINE (UA) TRACE mg/dL (NEGATIVE); LEUKOCYTE ESTERASE, URINE NEGATIVE (NEGATIVE); NITRITE,URINE NEGATIVE (NEGATIVE); OCCULT BLOOD,URINE NEGATIVE (NEGATIVE); PROTEIN,URINE NEGATIVE (NEGATIVE); UROBILINOGEN,URINE 0.2 (NORMAL) E.U./dL (NORMAL)
[2023-02-25 10:48] VITALS: BP 146/95
[2023-02-25 10:51] LABS: BACTERIA,URINE Few /HPF (None Seen); CLARITY,URINE CLEAR (CLEAR); MUCUS,URINE Moderate Strands; RBC,URINE 0-5 /HPF (0-5); SQUAMOUS EPITHELIAL CELL,UR MOD Squamous (<= Few); WBC,URINE 0-3 /HPF (0-5)
[2023-02-25 11:09] LABS: CREATININE,URINE 176.2 mg/dL; PROTEIN/CREATININE RATIO,URINE 0.2 (<=0.2)
[2023-02-25 11:25] LABS: ALBUMIN 3.5 g/dL (3.2-5.5); ALBUMIN/GLOBULIN RATIO 1.3 (1.0-2.2); BILIRUBIN,TOTAL 1.1 mg/dL (0.2-1.0); CALCIUM 8.9 mg/dL (8.5-10.3); CREATININE 0.6 mg/dL (0.6-1.3); POTASSIUM 3.4 mmol/L (3.5-4.5); TOTAL PROTEIN 6.2 g/dL (6.4-8.9); URIC ACID 5.3 mg/dL (2.3-6.6)
--- NOTE | 2023-02-25 11:34 | PROVIDER PROGRESS NOTE ---
- HPI Chief Complaint: Labor Current : Vital Signs Temperature 98.1 F 02/25/23 10:22 Heart Rate 95 02/25/23 10:22 Respiratory Rate 16 02/25/23 10:22 Blood Pressure 146/95 H 02/25/23 10:22 Temperature 98.1 F 02/25/23 10:32 Heart Rate 105 H 02/25/23 10:32 Respiratory Rate 16 02/25/23 10:32 Blood Pressure 145/101 H 02/25/23 10:32 O2 Saturation If not protocol: Oxygen Flow, liters/minute - Exam Patient is a -0-0-1 at 35 weeks and 4 days presenting with contractions that started at 5:00 this morning. Patient had intercourse last night. She denies vaginal bleeding and leakage of fluid. Positive movement. is complicated by gestational diabetes requiring insulin. Patient is on Lantus 40 units at night. Gen: NAD Abdomen: Gravid, nontender Cervix: 0/0/-3 - Procedures OB Procedure Performed: NST NST Procedure: NST Procedure Start Time 09:58 Stop Time 10:35 35+4 weeks Baseline: 130, moderate variability, positive accelerations, negative decelerations. Reactive NST. Procedure Details: Patient initially had elevated blood pressure at presentation. She was switched to larger cuff size with normal blood pressures. CMP was within normal limits, Except blood sugar which was 170. Patient had large blueberry muffin this morning. Discussed glucose management and advised patient to bring in blood sugar log at next appointment on Monday. Patient discharged home with labor precautions.
[2023-02-25 12:34] LABS: BACTERIAL VAGINOSIS DNA NEGATIVE (NEGATIVE)
[2023-02-25 14:18] LABS: CANDIDA GLABRATA DNA NEGATIVE (NEGATIVE); CANDIDA GROUP DNA POSITIVE (NEGATIVE); CANDIDA KRUSEI DNA NEGATIVE (NEGATIVE); TRICHOMONAS VAGINALIS DNA NEGATIVE (NEGATIVE)
== END 2023-02-25 11:45 | disposition home or self-care (01) ==
LOC: WFO 10:17 → FBP 10:19 → WFO 11:45
PROVIDERS: ATTEND Obstetrics & Gynecology Obstetrics
DX: O60.03 Preterm labor without delivery, third trimester (principal); O24.414 Gestational diabetes mellitus in pregnancy, insulin controlled; Z3A.35 35 weeks gestation of pregnancy
CPT/HCPCS: 36415; 59025; 80053; 81001; 81514; 82570; 83615; 84156; 84550; 99214

== ENCOUNTER 2023-02-27 08:00 | Outpatient (CLI) | payer MEDICAID | END 2023-02-27 23:59 | disposition home or self-care (01) | LOC: LAB.WC 08:00 | PROVIDERS: ATTEND Obstetrics & Gynecology | DX: O09.93 Supervision of high risk pregnancy, unspecified, third trimester (principal) | CPT/HCPCS: 87797 ==

== ENCOUNTER 2023-02-27 09:59 | Outpatient (CLI) | payer MEDICAID ==
[2023-02-27 10:31] VITALS: BP 138/90
--- NOTE | 2023-02-27 11:34 | PROCEDURE REPORT ---
- HPI Diagnosis/Indication for NST: Gestational Diabetes Current EDU 03/28/23 Gestation 35 Weeks and 6 Days 2 Para 1 Vital Signs Temperature 98.1 F 02/27/23 10:06 Heart Rate 89 02/27/23 10:06 Respiratory Rate 18 02/27/23 10:06 Blood Pressure 136/92 H 02/27/23 10:06 Temperature 98.1 F 02/27/23 10:06 Heart Rate 89 02/27/23 10:06 Respiratory Rate 18 02/27/23 10:06 Blood Pressure 138/90 H 02/27/23 10:28 O2 Saturation If not protocol: Oxygen Flow, liters/minute - NST Procedure NST Procedure Start Date 02/27/23 Start Time 10:11 Stop Time 10:41 Vibroacoustic Stimulation Used No Patient States Movement Yes - Results and Plan Plan: Patient is a 28-year-old -0-0-1 at 35 weeks 6 days gestation here for roxnane eduled NST. NST Performed 02/27/2023 NST Read 02/27/2023 FHT: 130 bpm baseline, moderate variability, accelerations present, no decelerations. Reactive NST [place]: Quiescent Diagnosis 35 weeks gestation Gestational diabetes Continue with twice-weekly NST.
== END 2023-02-27 10:58 | disposition home or self-care (01) ==
LOC: WFO 09:59 → FBP 10:02 → WFO 10:58
PROVIDERS: ATTEND Obstetrics & Gynecology
DX: O24.419 Gestational diabetes mellitus in pregnancy, unspecified control (principal); O09.93 Supervision of high risk pregnancy, unspecified, third trimester; Z3A.35 35 weeks gestation of pregnancy
CPT/HCPCS: 59025; 87797

== ENCOUNTER 2023-02-27 12:33 | Outpatient (CLI) | payer MEDICAID ==
--- NOTE | 2023-02-27 14:56 | Ultrasound Report ---
PROCEDURE: OB Biophysical Profile INDICATIONS: GDM, CLASS A2 OUTSIDE/PRIOR DATING DATA: Last menstrual period (LMP): 06/21/2022. LMP-based estimated date of delivery (NIGEL): 03/28/2023. First dating scan (date and location): Dr. Bunch, 08/23/2022. Estimated date of delivery (NIGEL) from first dating scan: 04/01/2023. TECHNIQUE: Real-time scanning was performed of the fetus, with image documentation and biometric basilio surements. Biophysical profile was also obtained. Endovaginal scanning: Not performed COMPARISON: None. FINDINGS: General: A single living intrauterine gestation is present. Presentation: Vertex Placenta: Placental position is posterior, without previa. heart rate: 132 beats per minute. Maternal cervical canal: 5.0 cm long; normal length is 2.5 cm or more. Estimated gestational age from initial scan: 35 weeks, 2 days Measurement variability in biometric dating: +/- 10 days from 12-20 weeks gestation, +/- 2 weeks from 20-30 weeks gestation, +/- 3 weeks at 30 weeks gestation or later. Biophysical profile: Tone: 2 points. Movement: 2 points. Respiration: 2 points. Largest pocket of fluid: 2 points. Umbilical artery Doppler: 3.8, 2.6, 3.5 IMPRESSION: 1. 8/8 biophysical profile. 2. Proximal umbilical artery Doppler ratio is elevated. Reviewed by: Aleena Burks MD on 02/27/2023 2:54 PM PDT Approved by: Aleena Burks MD on 02/27/2023 2:54 PM PDT Station ID: [id number]
== END 2023-02-27 12:34 | disposition home or self-care (01) ==
LOC: DI 12:33
PROVIDERS: ATTEND Obstetrics & Gynecology
DX: O24.414 Gestational diabetes mellitus in pregnancy, insulin controlled (principal); Z3A.35 35 weeks gestation of pregnancy

== ENCOUNTER 2023-03-02 08:40 | Outpatient (CLI) | payer MEDICAID ==
--- NOTE | 2023-03-02 14:13 | Ultrasound Report ---
PROCEDURE: OB F/U or Repeat INDICATIONS: IUGR OUTSIDE/PRIOR DATING DATA: Last menstrual period (LMP): 06/21/2022. LMP-based estimated date of delivery (NIGEL): 03/28/2023. First dating scan (date and location): 08/23/2022. Estimated date of delivery (NIGEL) from first dating scan: 04/01/2023. The below data below was generated using the ultrasound NIGEL of 04/01/2023 TECHNIQUE: Real-time scanning was performed of the fetus, with image documentation and biometric measurements. Endovaginal scanning: Not performed. COMPARISON: 02/27/2023 FINDINGS: General: A single living intrauterine gestation is present. Presentation: Cephalic Placenta: Placental position is posterior, without previa. Amniotic fluid index: 17.9 cm, within normal limits for gestational age. Largest pocket 4.4 cm. heart rate: 129 beats per minute. Maternal cervical canal: 4.8 cm long; normal length is 2.5 cm or more. biometrics: Biparietal diameter: 8.9 cm, 35 weeks 6 days Head circumference: 32.3 cm, 36 weeks 4 days Abdominal circumference: 32.7 cm, 36 weeks 4 days Femur length: 6.6 cm, 34 weeks 1 day Estimated gestational age from initial scan: 35 weeks 5 days Composite gestational age from present scan: 35 weeks 6 days Estimated weight and percentile: 2794 g, 55th percentile Measurement variability in biometric dating: +/- 10 days from 12-20 weeks gestation, +/- 2 weeks from 20-30 weeks gestation, +/- 3 weeks at 30 weeks gestation or more. IMPRESSION: 1. [place] living intrauterine at 35 weeks 6 days based on today's ultrasound. This is co ncordant with the prior dating. Fetus is in the 55th percentile for weight. Cephalic position. 2. Normal placenta and amniotic fluid. Reviewed by: Marty Chakraborty MD on 03/02/2023 2:11 PM PDT Approved by: Marty Chakraborty MD on 03/02/2023 2:11 PM PDT Station ID: [id number]
== END 2023-03-02 08:41 | disposition home or self-care (01) ==
LOC: DI 08:40
PROVIDERS: ATTEND Obstetrics & Gynecology
DX: O36.5993 Maternal care for other known or suspected poor fetal growth, unspecified trimester, fetus 3 (principal); Z3A.35 35 weeks gestation of pregnancy

== ENCOUNTER 2023-03-02 09:27 | Outpatient (CLI) | payer MEDICAID ==
[2023-03-02 09:49] VITALS: O2SAT 100
[2023-03-02] MEDS ORDERED: METOCLOPRAMIDE 10 MG TABLET PO ONE (10:05)
--- NOTE | 2023-03-02 10:06 | PROVIDER PROGRESS NOTE ---
- HPI Chief Complaint: Diabetes Current : Vital Signs Temperature 97.9 F 03/02/23 09:37 Heart Rate 74 03/02/23 09:37 Respiratory Rate 17 03/02/23 09:37 Blood Pressure 129/80 03/02/23 09:37 O2 Saturation 100 03/02/23 09:37 Temperature 97.9 F 03/02/23 09:37 Heart Rate 74 03/02/23 09:37 Respiratory Rate 17 03/02/23 09:37 Blood Pressure 132/81 H 03/02/23 10:01 O2 Saturation 100 03/02/23 09:37 If not protocol: Oxygen Flow, liters/minute - Procedures OB Procedure Performed: NST Diagnosis/Indication for NST: Gestational Diabetes - Plan Plan: Patient is a 28-year-old G2, P1 at 36 weeks gestation here for scheduled NST. NST Performed 03/02/2023 NST Read 03/02/2023 FHT: 125 bpm baseline, moderate variability, accelerations present, no decele rations. Reactive NST [place]: Quiescent Diagnosis 36 weeks gestation -Follow-up with routine care Gestational diabetes -Continue with twice-weekly NST. Gestational hypertension -Delivery at 37 weeks -Labs normal yesterday. Normal blood pressure today. Headache -Mild frontal headache today. Did take Tylenol approximately 3 hours ago. Has been intermittent over the last several weeks. -1 dose of metoclopramide p.o. with mild relief, but still present. -Patient is ambulating, smiling, and able to function normally. My concern for severe preeclampsia is low given normal blood pressure, normal labs yesterday. -Will try metoclopramide and diphenhydramine together this afternoon after napping.
[2023-03-02 10:09] VITALS: BP 132/81
== END 2023-03-02 11:00 | disposition home or self-care (01) ==
LOC: WFO 09:27 → FBP 09:29 → WFO 11:00
PROVIDERS: ATTEND Obstetrics & Gynecology
DX: O24.419 Gestational diabetes mellitus in pregnancy, unspecified control (principal); O13.3 Gestational [pregnancy-induced] hypertension without significant proteinuria, third trimester; O36.5993 Maternal care for other known or suspected poor fetal growth, unspecified trimester, fetus 3; O99.891 Other specified diseases and conditions complicating pregnancy; R51.9 Headache, unspecified; Z3A.36 36 weeks gestation of pregnancy
CPT/HCPCS: 59025; 76816; A9270

== ENCOUNTER 2023-03-04 13:24 | Outpatient (CLI) | payer MEDICAID ==
[2023-03-04 14:04] LABS: BILIRUBIN,URINE NEGATIVE (NEGATIVE); GLUCOSE, URINE (UA) NEGATIVE (NEGATIVE); KETONES,URINE (UA) TRACE mg/dL (NEGATIVE); LEUKOCYTE ESTERASE, URINE NEGATIVE (NEGATIVE); NITRITE,URINE NEGATIVE (NEGATIVE); OCCULT BLOOD,URINE NEGATIVE (NEGATIVE); PH,URINE 6.5 PH (5.0-7.5); PROTEIN,URINE TRACE mg/dL (NEGATIVE); UROBILINOGEN,URINE 0.2 (NORMAL) E.U./dL (NORMAL)
[2023-03-04 14:10] LABS: BACTERIA,URINE Rare /HPF (None Seen); CLARITY,URINE CLEAR (CLEAR); MUCUS,URINE Few Strands; RBC,URINE 0-5 /HPF (0-5); SQUAMOUS EPITHELIAL CELL,UR MOD Squamous (<= Few); WBC,URINE 0-3 /HPF (0-5)
--- NOTE | 2023-03-04 14:22 | PROVIDER PROGRESS NOTE ---
- HPI Chief Complaint: Labor Check Current : Vital Signs Temperature 97.9 F 03/04/23 13:41 Heart Rate 18 L 03/04/23 13:41 Respiratory Rate 100 H 03/04/23 13:41 Blood Pressure 127/82 H 03/04/23 13:41 Temperature 97.9 F 03/04/23 13:41 Heart Rate 18 L 03/04/23 13:41 Respiratory Rate 100 H 03/04/23 13:41 Blood Pressure 127/82 H 03/04/23 13:41 O2 Saturation If not protocol: Oxygen Flow, liters/minute - Procedures OB Procedure Performed: NST Diagnosis/Indication for NST: Gestational Hypertension Service Date of procedure: 03/04/23 (Read 03/04/2023) - Plan Plan: Patient is a 28-year-old -0-0-1 at 36 weeks 4 days gestation here for contractions that started around 0500 this morning. More consistent at 1100 and have continued until now. She has good movement, no leaking, no vaginal bleeding. She denies headache, right upper quadrant pain, changes in vision. complications Gestational hypertension- IOL scheduled 03/07/2023 Gestational diabetes: Managed with insulin Past surgical history Laparoscopic cholecystectomy: 2021 Physical Exam Constitutional: alert, no acute distress, well hydrated, well developed, well nourished, appropriate dress. Cardiovascular: Regular rate and rhythm. Respiratory: no respiratory distress. Abdomen: nondistended, nontender, no guarding. Psych: affect and mood appropriate, normal interaction, good eye contact. SVE: 0/50/-3 FHT: 130 bpm baseline, moderate variability, accelerations present, no decelerations. Reactive NST [place]: 3-6 minutes Assessment and plan 28-year-old -0-0-1 at 36 weeks 4 days gestation with false labor 1. False labor -Patient observed in triage for 2 hours without significant cervical change. -Discharged with labor precautions 2. Gestational hypertension -Induction of labor scheduled for 03/07/2023 3. Gestational diabetes -Continue home insulin 4. 36 weeks gestation -Follow-up appointment in 2 days in clinic.
[2023-03-04] MEDS ORDERED: OXYTOCIN/SODIUM CHLORIDE 500 ML IV SCH (16:00)
[2023-03-04] MEDS ORDERED: AMPICILLIN 2 GM in SODIUM CHLORIDE 0.9% MINIBAG 100 ML IV ONE (16:00)
[2023-03-04 18:36] VITALS: BP 123/79
[2023-03-04] MEDS ORDERED: AMPICILLIN 1 GM in SODIUM CHLORIDE 0.9% MINIBAG 100 ML IV SCH (21:00)
== END 2023-03-04 16:45 | disposition home or self-care (01) ==
LOC: WFO 13:24 → FBP 13:26 → WFO 16:45
PROVIDERS: ATTEND Obstetrics & Gynecology
DX: O47.03 False labor before 37 completed weeks of gestation, third trimester (principal); O13.3 Gestational [pregnancy-induced] hypertension without significant proteinuria, third trimester; O24.414 Gestational diabetes mellitus in pregnancy, insulin controlled; Z3A.36 36 weeks gestation of pregnancy
CPT/HCPCS: 81001; 87086; 99214

== ENCOUNTER 2023-03-06 09:31 | Outpatient (CLI) | payer MEDICAID ==
[2023-03-06 10:08] VITALS: BP 137/97
--- NOTE | 2023-03-06 12:32 | PROCEDURE REPORT ---
- HPI Diagnosis/Indication for NST: Gestational Hypertension Current EDU 03/28/23 Gestation 36 Weeks and 6 Days 2 Para 1 Vital Signs Temperature 98.2 F 03/06/23 09:46 Heart Rate 91 03/06/23 09:46 Respiratory Rate 18 03/06/23 09:46 Blood Pressure 137/97 H 03/06/23 09:46 Temperature 98.2 F 03/06/23 09:46 Heart Rate 91 03/06/23 09:46 Respiratory Rate 18 03/06/23 09:46 Blood Pressure 137/97 H 03/06/23 09:46 O2 Saturation If not protocol: Oxygen Flow, liters/minute - NST Procedure NST Procedure Start Date 03/06/23 Start Time 09:45 Stop Time 10:14 Vibroacoustic Stimulation Used No Patient States Movement Yes 36+6 weeks 130, moderate variability, +accels, no decels Reactive NST Gestational diabetes, gestational hypertension
== END 2023-03-06 10:20 | disposition home or self-care (01) ==
LOC: WFO 09:31 → FBP 09:36 → WFO 10:20
PROVIDERS: ATTEND Obstetrics & Gynecology Obstetrics
DX: O13.3 Gestational [pregnancy-induced] hypertension without significant proteinuria, third trimester (principal); O24.419 Gestational diabetes mellitus in pregnancy, unspecified control; Z3A.36 36 weeks gestation of pregnancy
CPT/HCPCS: 59025

== ENCOUNTER 2023-03-06 12:21 | Outpatient (CLI) | payer MEDICAID ==
--- NOTE | 2023-03-06 19:15 | Ultrasound Report ---
PROCEDURE: OB Biophysical Profile INDICATIONS: GDM, CLASS A2 OUTSIDE/PRIOR DATING DATA: Last menstrual period (LMP): 06/21/2022. LMP-based estimated date of delivery (NIGEL): 03/28/2023. First dating scan (date and location): 08/23/2022. Estimated date of delivery (NIGEL) from first dating scan: 04/01/2023. The below data below was generated using the working NIGEL of 04/01/2023 TECHNIQUE: Real-time scanning was performed of the fetus, with image documentation and biometric basilio surements. Biophysical profile was also obtained. Endovaginal scanning: None COMPARISON: None. FINDINGS: General: A single living intrauterine gestation is present. Presentation: Cephalic Placenta: Placental position is posterior, without previa. Amniotic fluid index: 11.7 cm, 24% for gestational age. heart rate: 150 beats per minute. Maternal cervical canal: 4.7 cm long; normal length is 2.5 cm or more. Estimated gestational age from initial scan: 36 week 2 day Biophysical profile: Tone: 2 points. Movement: 2 points. Respiration: 2 points. Largest pocket of fluid: 2 points. Umbilical artery Doppler: 2.8, 2.7, 2.7 IMPRESSION: Single live intrauterine consistent with 36 week 2 day gestation. Biophysical profile score 8 out of 8 Reviewed by: Karlos Lazar MD on 03/06/2023 6:13 PM PHU Approved by: Karlos Lazar MD on 03/06/2023 6:13 PM PHU Station ID: [id number]
== END 2023-03-06 12:22 | disposition home or self-care (01) ==
LOC: DI 12:21
PROVIDERS: ATTEND Obstetrics & Gynecology
DX: O24.419 Gestational diabetes mellitus in pregnancy, unspecified control (principal); Z3A.36 36 weeks gestation of pregnancy

== ENCOUNTER 2023-03-08 07:30 | Inpatient (IN) | payer MEDICAID ==
[2023-03-08] MEDS ORDERED: OXYTOCIN 10 UNIT/ML VIAL IM PRN (08:38)
[2023-03-08] MEDS ORDERED: miSOPROStoL 200 MCG TABLET BC PRN (08:38)
[2023-03-08] MEDS ORDERED: LACTATED RINGERS 1,000 ML IV PRN (08:38)
[2023-03-08] MEDS ORDERED: SODIUM CHLORIDE FLUSH 0.9% 10 ML SYRINGE IVP PRN (08:38)
[2023-03-08] MEDS ORDERED: hydrALAZINE INJ 20 MG/ML VIAL IVP PRN ×2 (08:38)
[2023-03-08] MEDS ORDERED: miSOPROStoL 200 MCG TABLET PR PRN (08:38)
[2023-03-08] MEDS ORDERED: lidocaine 1% 20 ML MDV ID PRN (08:38)
[2023-03-08] MEDS ORDERED: OXYTOCIN/SODIUM CHLORIDE 500 ML IV PRN (08:38)
[2023-03-08] MEDS ORDERED: fentaNYL 100 MCG/2 ML VIAL IVP PRN (08:38)
[2023-03-08] MEDS ORDERED: CARBOPROST TROMETHAMINE 250 MCG/ML AMP IM PRN (08:38)
[2023-03-08] MEDS ORDERED: NIFEdipine 10 MG CAPSULE PO PRN (08:38)
[2023-03-08] MEDS ORDERED: METHYLERGONOVINE 0.2 MG/ML VIAL IM PRN (08:38)
[2023-03-08] MEDS ORDERED: LABETALOL 20 MG/4 ML SYRINGE IVP PRN ×3 (08:38)
[2023-03-08] MEDS ORDERED: TRANEXAMIC ACID IN NACL 1,000 MG/100 ML BAG IV PRN (08:38)
--- NOTE | 2023-03-08 08:38 | HISTORY & PHYSICAL EXAMINATION ---
Admit History - Visit Reason Visit Reason: Other (Patient is a 28-year-old -0-0-1 at 37+2 weeks presenting for induction of labor secondary to gestational hypertension and pre- gestational diabetes for which the patient is on insulin.) - : 2 Parity: 1 Care: positive: [facility] Risk/History: positive: Gestational diabetes Complications This : positive: induced HTN, Other (pre-gestational diabetes) Smoking Status: Never smoker - Mother's Labs Mother's Blood Type: positive: AB Mother's RH: positive: Positive GBS: positive: Group B Step Negative Rubella Status: positive: Immune - HPI Diagnosis/Indication for NST: Pre- Diabetes - NST Procedure NST Procedure Start Time 09:45 Stop Time 10:14 37+2 135, moderate variability, +accels, no decels reactive NST Meds/Allgy - Home Medications Home Medications: Ambulatory Orders Medication Instructions Recorded Confirmed Metoclopramide [Reglan] 10 mg PO ACHS PRN #20 tablet 03/02/23 diphenhydrAMINE [Benadryl] 25 mg PO Q8H PRN #30 cap 03/02/23 - Allergies Allergies/Adverse Reactions: Allergies Allergy/AdvReac Type Severity Reaction Status Date / Time No Known Drug Allergies Allergy Verified 10/14/22 10:00 Review of Systems - All Other Systems All Other Systems: reports: Reviewed and negative Physical - Abdominal Exam Contraction Frequency (min/apart): not rabia Uterine Resting Tone: positive: Soft - Monitoring Strip Review: positive: Category I - Presentation Presentation: positive: Vertex - Vaginal Exam Membranes: positive: Membranes intact Dilation (in cm): 0.5 Effacement (%): 50 Station: positive: -3 Cervical Position: positive: Posterior - Speculum Exam Speculum Exam Performed: positive: No Plan for Labor - Plan For Labor I expect patient to be DC'd or transferred within 96 hours.: Yes Plan for Labor: 1. Gestational diabetes coverage in active labor w/ hourly blood sugars 2. gestational hypertension keep sbp< 160, DBP<110 not on medication
[2023-03-08] MEDS ORDERED: SODIUM CHLORIDE FLUSH 0.9% 10 ML SYRINGE IVP SCH (09:00)
[2023-03-08] MEDS ORDERED: miSOPROStoL 100 MCG TABLET BC SCH (09:00)
[2023-03-08 09:21] LABS: BASOPHILS % (AUTO) 0.2 %; EOSINOPHILS # (AUTO) 0.2 10^3/uL (0.0-0.7); HCT - HEMATOCRIT 39.5 % (37.0-47.0); HGB - HEMOGLOBIN 13.7 g/dL (12.0-16.0); LYMPHOCYTES # (AUTO) 1.7 10^3/uL (1.5-3.5); LYMPHOCYTES % (AUTO) 15.2 %; MEAN CORPUSCULAR HEMOGLOBIN 30.8 pg (27.0-31.0); MEAN CORPUSCULAR HGB CONC 34.7 g/dL (32.0-36.0); MEAN CORPUSCULAR VOLUME 88.8 fL (81.0-99.0); MEAN PLATELET VOLUME 10.8 fL (7.9-10.8); MONOCYTES # (AUTO) 0.6 10^3/uL (0.0-1.0); MONOCYTES % (AUTO) 5.6 %; NEUTROPHILS # (AUTO) 8.4 10^3/uL (1.5-6.6); NEUTROPHILS % (AUTO) 76.5 %; PLT - PLATELET COUNT 252 10^3/uL (130-450); RED BLOOD COUNT 4.45 10^6/uL (4.20-5.40); RED CELL DISTRIBUTION WIDTH 12.4 % (12.0-15.0)
[2023-03-08] MEDS: OXYTOCIN/SODIUM CHLORIDE 500 ML IV SCH ×2 (09:21→13:56)
[2023-03-08 10:00] LABS: ALBUMIN 3.5 g/dL (3.2-5.5); ALBUMIN/GLOBULIN RATIO 1.3 (1.0-2.2); CALCIUM 9.2 mg/dL (8.5-10.3); CREATININE 0.7 mg/dL (0.6-1.3); POTASSIUM 3.7 mmol/L (3.5-4.5); TOTAL PROTEIN 6.3 g/dL (6.4-8.9)
[2023-03-08] MEDS: INSULIN LISPRO 300 UNIT/3 ML PEN SUBQ SCH ×5 (10:13→20:19)
--- NOTE | 2023-03-08 13:37 | PROVIDER PROGRESS NOTE ---
Labor Progress Note - Uterine Monitoring Uterine Monitoring Mode: positive: External toco Contraction Frequency (min/apart): irregular Contraction Intensity: positive: Mild - Monitoring Monitor Mode: positive: External ultrasound Heart Rate Variability: positive: Moderate (6-25 bmp) Accelerations: positive: Present, 15x15 Decelerations: positive: None Strip Review: positive: Category I - Vaginal Exam Dilation (in cm): 1.5 Effacement (%): 50 Station: -2 Cervical Position: Midposition - Labor Progress Note Labor Progress Note/Additional Text: Cervical ripening balloon placed. 60 mL in uterine balloon and 40 mm in vaginal balloon. Pitocin starting
--- NOTE | 2023-03-08 13:42 | ANESTHESIA ---
Pre-Anesthesia VS, & Labs - Diagnosis term labor, IUP, labor pain - Procedure epidural for Vital Signs: Temp Pulse Resp BP Pulse Ox O2 Flow Rate 36.8 C 90 18 127/84 H 03/08/23 08:10 03/08/23 08:10 03/08/23 08:10 03/08/23 08:10 Height: 5 ft 7 in Weight (kg): 122.016 kg Body Mass Index: 42.1 BMI Classification: Morbidly Obese - NPO Last Fluid Intake: t/o afternoon Last Food Intake: lunch - Is Patient ?: Yes - Lab Results Current Lab Results: Laboratory Tests 03/08/23 09:30: Sodium 135, Potassium 3.7, Chloride 107, Carbon Dioxide 19 L, Anion Gap 9.0, BUN 10, Creatinine 0.7, Estimated GFR (MDRD) 100, Glucose 125 H, Calcium 9.2, Total Bilirubin 1.0, AST 14, ALT 16, Alkaline Phosphatase 153 H, Total Protein 6.3 L, Albumin 3.5, Globulin 2.8, Albumin/Globulin Ratio 1.3 03/08/23 08:52: POC Whole Bld Glucose 110 H 03/08/23 08:00: WBC 11.0 H, RBC 4.45, Hgb 13.7, Hct 39.5, MCV 88.8, MCH 30.8, MCHC 34.7, RDW 12.4, Plt Count 252, MPV 10.8, Neut # (Auto) 8.4 H, Lymph # (Auto) 1.7, Dyer # (Auto) 0.6, Eos # (Auto) 0.2, Baso # (Auto) 0.0, Absolute Nucleated RBC 0.00, Nucleated RBC % 0.0 03/08/23 08:00: Blood Type AB POSITIVE, Antibody Screen NEGATIVE Lab results reviewed: Yes Fish Bones: 03/08/23 08:00 03/08/23 09:30 Home Medications and Allergies Active Medications Carboprost Tromethamine (Carboprost Tromethamine 250 Mcg/Ml Amp) 250 mcg IM .ONCE PRN PRN Reason: Hemorrhage Fentanyl (Fentanyl 100 Mcg/2 Ml Vial) 50 mcg IVP Q1H PRN PRN Reason: Severe Pain (score 7-10) Hydralazine HCl (Hydralazine Inj 20 Mg/Ml Vial) 5 - 10 mg IVP Q20M PRN; Protocol PRN Reason: SBP> or= 160 OR DBP> or= 110 Hydralazine HCl (Hydralazine Inj 20 Mg/Ml Vial) 10 mg IVP .ONCE PRN; Protocol PRN Reason: SBP> or= 160 OR DBP> or= 110 Lactated Ringer's (Lr) 500 mls @ 999 mls/hr IV PRN PRN PRN Reason: Oxytocin/Sodium Chloride (Pitocin/Sodium Chloride) 500 mls @ 999 mls/hr IV PRN PRN; Protocol PRN Reason: POST- HEMORR PREVENTION Tranexamic Acid (Tranexamic 1,000 Mg/100ml-Nacl) 1,000 mg in 100 mls @ 600 mls/hr IV Q30M PRN PRN Reason: EBL >1200mL and within 3hr Oxytocin/Sodium Chloride (Pitocin/Sodium Chloride) 500 mls @ 1 mls/hr IV TITR WILBERTO; Protocol Last Admin: 03/08/23 09:21 Dose: Not Given Insulin Human Lispro (Insulin Lispro 300 Unit/3 Ml Pen) 2 - 10 unit SUBQ Q1HR WILBERTO; Protocol Last Admin: 03/08/23 13:01 Dose: Not Given Labetalol HCl (Labetalol 20 Mg/4 Ml Syringe) 20 - 80 mg IVP Q10M PRN; Protocol PRN Reason: SBP> or= 160 OR DBP> or= 110 Labetalol HCl (Labetalol 20 Mg/4 Ml Syringe) 20 mg IVP .ONCE PRN; Protocol PRN Reason: SBP> or= 160 OR DBP> or= 110 Labetalol HCl (Labetalol 20 Mg/4 Ml Syringe) 20 - 40 mg IVP Q10M PRN; Protocol PRN Reason: SBP> or= 160 OR DBP> or= 110 Lidocaine HCl (Lidocaine 1% 20 Ml Mdv) 20 ml ID .ONCE PRN PRN Reason: PERINEAL REPAIR Stop: 03/11/23 08:38 Methylergonovine Maleate (Methylergonovine 0.2 Mg/Ml Vial) 0.2 mg IM .ONCE PRN PRN Reason: Hemorrhage Misoprostol (Misoprostol 200 Mcg Tablet) 600 mcg BC .ONCE PRN PRN Reason: Hemorrhage Misoprostol (Misoprostol 200 Mcg Tablet) 800 mcg VA .ONCE PRN PRN Reason: Hemorrhage Misoprostol (Misoprostol 100 Mcg Tablet) 25 mcg BC Q4H [facility] Stop: 03/09/23 05:01 Last Admin: 03/08/23 09:32 Dose: 25 mcg Nifedipine (Nifedipine 10 Mg Capsule) 10 - 20 mg PO Q20M PRN; Protocol PRN Reason: SBP> or= 160 OR DBP> or= 110 Oxytocin (Oxytocin 10 Unit/Ml Vial) 10 unit IM .ONCE PRN PRN Reason: Step One if no IV access. Sodium Chloride (Sodium Chloride Flush 0.9% 10 Ml Syringe) 10 ml IVP PRN PRN PRN Reason: NEEDED PER PROVIDER ORDERS Last Admin: 03/08/23 09:36 Dose: 10 ml Sodium Chloride (Sodium Chloride Flush 0.9% 10 Ml Syringe) 10 ml IVP Q8H [facility] Last Admin: 03/08/23 09:36 Dose: 10 ml Allergies/Adverse Reactions: Allergies Allergy/AdvReac Type Severity Reaction Status Date / Time No Known Drug Allergies Allergy Verified 10/14/22 10:00 Anes History & Medical History - Anesthetic History Anesthesia Complications: reports: No previous complications Family history of Anesthesia Complications: Denies Family history of Malignant Hyperthermia: Denies - Medical History Cardiovascular: reports: Hypertension Smoking Status: Never smoker Psychosocial: reports: No issues indicated History of Cancer?: No - Surgical History General: reports: Cholecystectomy - Obstetrical History : 2 Parity: 1 Events: reports: Gestational diabetes (insulin sliding scale t/o active labor) Complications: reports: induced HTN, Other (pre-gestational diabetes) Exam General: Alert, Oriented x3, Cooperative Dental: WNL Mouth Openin Fingerbreadth Neck Mobility: Normal Respiratory: No respiratory distress Cardiovascular: Regular rate Neurological: Normal speech Mental/Cognitive Status: Alert/Oriented X3, Normal for patient Cognitive Status: Within normal limits Plan Anesthesia Type: Epidural Consent for Procedure(s) Verified and Reviewed: Yes Code Status: Attempt Resuscitation ASA classification: 2-Mild systemic disease Is this case an emergency?: No
[2023-03-08] MEDS: LACTATED RINGERS 1,000 ML IV SCH (14:01)
--- NOTE | 2023-03-08 17:05 | PROVIDER PROGRESS NOTE ---
Labor Progress Note - Uterine Monitoring Uterine Monitoring Mode: positive: External toco Contraction Intensity: positive: Moderate - Monitoring Monitor Mode: positive: External ultrasound Heart Rate Variability: positive: Moderate (6-25 bmp) Accelerations: positive: Present, 15x15 Decelerations: positive: None (10 units of pitocin. wellbeing r eassuring)
[2023-03-08] MEDS ORDERED: ROPIVACAINE 0.2% 200 MG/100 ML BAG EP ONE (18:45)
[2023-03-08] MEDS ORDERED: LIDOCAINE-MPF 2% 5 ML VIAL ONE (18:46)
[2023-03-08] MEDS ORDERED: ePHEDrine 50 MG/ML VIAL IVP ONE (19:26)
--- NOTE | 2023-03-08 19:36 | PROVIDER PROGRESS NOTE ---
Labor Progress Note - Uterine Monitoring Uterine Monitoring Mode: positive: External toco Contraction Frequency (min/apart): 3 Contraction Intensity: positive: Moderate to strong - Monitoring Monitor Mode: positive: External ultrasound Heart Rate Variability: positive: Moderate (6-25 bmp) Accelerations: positive: Present, 15x15 Decelerations: positive: None Strip Review: positive: Category I - Vaginal Exam Dilation (in cm): 4 Effacement (%): 60 Station: -2 Cervical Position: Midposition - Labor Progress Note Labor Progress Note/Additional Text: Patient received epidural Cervical ripening balloon fell out AROM with clear fluid wellbeing reassuring
[2023-03-08] MEDS ORDERED: ePHEDrine 50 MG/ML VIAL IVP PRN (19:54)
[2023-03-08] MEDS ORDERED: NALBUPHINE 10 MG/ML AMP IVP PRN (19:54)
[2023-03-08] MEDS ORDERED: METOCLOPRAMIDE 10 MG/2 ML VIAL IVP PRN (19:54)
[2023-03-08] MEDS ORDERED: ROPIVACAINE 0.2% 200 MG/100 ML BAG EP PRN (19:54)
[2023-03-08] MEDS ORDERED: diphenhydrAMINE INJ 50 MG/ML VIAL IVP PRN (19:54)
[2023-03-08] MEDS ORDERED: ONDANSETRON 4 MG/2 ML VIAL IVP PRN (19:54)
[2023-03-08] MEDS ORDERED: NALOXONE 0.4 MG/ML VIAL IVP PRN (19:54)
--- NOTE | 2023-03-08 21:53 | DELIVERY NOTE ---
Delivery Note - Labor Labor: positive: Induced by ARM, Induced by oxytocin - Infant Delivery Method Delivery Method: positive: Spontaneous vaginal delivery - Cervical Ripening Method Cervical Ripening Method: positive: Balloon device, Misoprostil - Presentation Presentation: positive: Vertex - Nuchal Cord Nuchal Cord: positive: None - Anesthetic Anesthetic Type: - Amniotic Fluid Description Amniotic Fluid Description: positive: Clear - Episiotomy Type Episiotomy Type: positive: None - Laceration Laceration: positive: None - Delivery Outcome Delivery Outcome: positive: Livebirth - [place] : positive: Placed in direct skin contact with mother, Bulb syringe, [place] used sex: positive: Male - Cord Cord: positive: 3 vessels - Placenta Placenta: positive: Intact - Estimated Blood Loss Estimated Blood Loss (in cc): 150 - Post Delivery Events Post Delivery Events: positive: No post delivery events - Delivery Comments (Free Text/Narrative) Delivery Comments (Free Text/Narrative): Stage I: Patient is a presenting for induction of labor for pregestational diabetes and gestational hypertension. Patient received cytotec. Cervical ripening balloon placed and pitocin started. AROM with clear fluid after CRB fell out. FHTs remained reassuring throughout the first stage. Patient received an epidural for anesthesia. Stage II: Male infant was atraumatcally delivered from MELANY position. There was no nuchal cord. The anterior shoulder was delivered without difficulty followed by the posterior shoulder and body. Infant was vigorous at delivery. Infant was placed on mom. was bulb suctioned and cord was doubly clamped and cut after delayed cord clamping. Weight and APGARS pending Stage III: Gentle cord traction. Placenta delivered spontaneously. Placenta was noted to not be intact. 3 vessel cord. Course: Uterine tone was firm with massage after delivery of the placenta. Oxytocin was administered IV. There were no lacerations. Hemostasis was excellent. EBL 150 mL.
[2023-03-08] MEDS ORDERED: SIMETHICONE CHEW 80 MG TABLET PO PRN (21:56)
[2023-03-08] MEDS ORDERED: LACTATED RINGERS 1,000 ML IV SCH (22:00)
[2023-03-08] MEDS: ACETAMINOPHEN 500 MG TABLET PO SCH (22:16)
[2023-03-08] MEDS: IBUPROFEN 600 MG TABLET PO SCH (22:16)
[2023-03-08] MEDS: DOCUSATE SODIUM 100 MG CAPSULE PO PRN (22:16)
[2023-03-09] MEDS: IBUPROFEN 600 MG TABLET PO SCH ×4 (04:26→23:04)
[2023-03-09] MEDS: ACETAMINOPHEN 500 MG TABLET PO SCH ×3 (06:19→23:04)
[2023-03-09] MEDS: LACTATED RINGERS 1,000 ML IV SCH (08:33)
--- NOTE | 2023-03-09 11:27 | PROVIDER PROGRESS NOTE ---
Subjective - Prog Note Date Prog Note Date: 03/09/23 Prog Note Time: 11:24 - Subjective Subjective: Patient is day 1 status postnormal spontaneous vaginal delivery after induction secondary to pregestational diabetes and gestational hypertension. Patient is doing well this morning. She is ambulating, tolerating regular diet, spontaneously voiding. She denies headache, changes in vision, and right upper quadrant pain. Objective - Vital Signs/Intake & Output Reviewed Vital Signs: Yes Vital Signs: Vital Signs x48h Temp Pulse Resp BP Pulse Ox 03/09/23 10:00 98.2 F 70 16 115/66 03/09/23 06:13 98.6 F 60 16 119/79 99 Intake & Output: Intake & Output 03/06/23 03/07/23 03/08/23 03/09/23 23:59 23:59 23:59 23:59 Intake Total 812.285 1451 Output Total 825 950 Balance -325.000 50 - Objective General Appearance: positive: No acute distress Respiratory: positive: Breath sounds nml Cardiovascular: positive: Regular rate & rhythm Abdomen: positive: Non-tender (Firm fundus below the umbilicus) Skin: positive: Color nml Extremities: positive: Non-tender, No pedal edema Reflexes: Bicep (R): 1+, Bicep (L): 1+, Knee (R): 1+, Knee (L): 1+ - Lab Results Fish Bones: 03/08/23 08:00 03/08/23 09:30 Other Labs: Lab Results x24hrs 03/09/23 03/08/23 03/08/23 Range/Units 07:58 21:07 20:04 POC Whole Bld Glucose 70 88 91 (70 - 100) mg/dL 03/08/23 03/08/23 03/08/23 Range/Units 18:03 16:08 14:18 POC Whole Bld Glucose 134 H 71 99 (70 - 100) mg/dL Assessment/Plan - Problem List (1) Gestational hypertension Impression: blood pressures have been within normal limits. Patient was counseled on signs and symptoms of preeclampsia. (2) Diabetes Impression: Patient advised to follow-up for glucose test as Qualifiers: Diabetes mellitus type: type 2 Diabetes mellitus mcc insulin use: without mcc use Diabetes mellitus complication status: without c omplication Qualified Code(s): E11.9 - Type 2 diabetes mellitus without c omplications (4) Vaginal delivery Impression: contraception: Patient's has vasectomy
[2023-03-09] MEDS: DOCUSATE SODIUM 100 MG CAPSULE PO PRN (23:08)
[2023-03-10] MEDS: IBUPROFEN 600 MG TABLET PO SCH ×2 (04:50→11:42)
[2023-03-10] MEDS: ACETAMINOPHEN 500 MG TABLET PO SCH (07:00)
--- NOTE | 2023-03-10 07:46 | Discharge Plan ---
Discharge Plan Problem Reviewed?: Yes Disposition: 01 Home, Self Care Condition: Good Diet: Regular Activity Restrictions: No Restrictions Shower Restrictions: No Driving Restrictions: No Additional Instructions or Follow Up instructions: Call for SBP >140, DBP >90 Come in for SBP>160, DBP>110 Come in for headache, changes in vision, and/or right upper quadrant pain No Smoking: If you smoke, Please STOP! Call for help.
--- NOTE | 2023-03-10 07:48 | DISCHARGE SUMMARY ---
Discharge Summary Discharge Date: 03/10/23 Discharging Provider: Terrie Condition at Discharge: Good Discharge Disposition: 01 Home, Self Care - DIAGNOSES Admission Diagnoses: gestational hypertension pre-gestational diabetes - HOSPITAL COURSE Hospital Course: Stage I: Patient is a presenting for induction of labor for pregestational diabetes and gestational hypertension. Patient received cytotec. Cervical ripening balloon placed and pitocin started. AROM with clear fluid after CRB fell out. FHTs remained reassuring throughout the first stage. Patient received an epidural for anesthesia. Stage II: Male infant was atraumatcally delivered from MELANY position. There was no nuchal cord. The anterior shoulder was delivered without difficulty followed by the posterior shoulder and body. was vigorous at delivery. was placed on mom. Infant was bulb suctioned and cord was doubly clamped and cut after delayed cord clamping. Weight and APGARS pending Stage III: Gentle cord traction. Placenta delivered spontaneously. Placenta was noted to not be intact. 3 vessel cord. Course: Uterine tone was firm with massage after delivery of the placenta. Oxytocin was administered IV. There were no lacerations. Hemostasis was excellent. EBL 150 mL. Patient had an uncomplicated course and was discharged to home on day 2. She was counseled on signs and symptoms of pre- eclampsia. Patient has a blood pressure follow up in the office. - ALLERGIES Allergies/Adverse Reactions: Allergies Allergy/AdvReac Type Severity Reaction Status Date / Time No Known Drug Allergies Allergy Verified 10/14/22 10:00 - MEDICATIONS Home Medications: Ambulatory Orders Medication Instructions Recorded Confirmed Metoclopramide [Reglan] 10 mg PO ACHS PRN #20 tablet 03/02/23 diphenhydrAMINE [Benadryl] 25 mg PO Q8H PRN #30 cap 03/02/23 - PHYSICAL EXAM AT DISCHARGE General Appearance: positive: No acute distress Respiratory: positive: Breath sounds nml Cardiovascular: positive: Regular rate & rhythm Abdomen: positive: Non-tender (firm fundus at the umbilicus) Extremities: positive: No pedal edema Reflexes: Bicep (R): 1+, Bicep (L): 1+, Knee (R): 1+, Knee (L): 1+ - LABS Result Diagrams: 03/08/23 08:00 03/08/23 09:30
[2023-03-10] MEDS: DOCUSATE SODIUM 100 MG CAPSULE PO PRN (07:58)
--- NOTE | 2023-03-10 08:04 | PROVIDER PROGRESS NOTE ---
Subjective - Prog Note Date Prog Note Date: 03/10/23 Prog Note Time: 08:01 - Subjective Subjective: Patient is day 2 status postnormal spontaneous vaginal delivery secondary to induction for gestational hypertension and pregestational diabetes. Patient is doing well this morning. She is ambulating, tolerating regular diet, spontaneously voiding. She denies headache, changes in vision, right upper quadrant pain. Objective - Vital Signs/Intake & Output Intake & Output: Intake & Output 03/07/23 03/08/23 03/09/23 03/10/23 23:59 23:59 23:59 23:59 Intake Total 401.243 2716 Output Total 825 950 Balance -325.000 50 - Objective General Appearance: positive: No acute distress Respiratory: positive: Breath sounds nml Cardiovascular: positive: Regular rate & rhythm Abdomen: positive: Non-tender (Firm fundus below the umbilicus) Skin: positive: Color nml Extremities: positive: No pedal edema Neurologic/Psychiatric: positive: Oriented x3 - Lab Results Fish Bones: 03/08/23 08:00 03/08/23 09:30 Other Labs: Lab Results x24hrs 03/09/23 Range/Units 07:58 POC Whole Bld Glucose 70 (70 - 100) mg/dL Assessment/Plan - Problem List (1) Gestational hypertension Impression: Blood pressures have been within normal limits. Patient was counseled on signs and symptoms of preeclampsia. She was given parameters for blood pressure measurements at home. She has a close outpatient follow-up for blood pressure check. (2) Diabetes Impression: Patient will need outpatient glucose testing . 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
[2023-03-10 09:32] VITALS: BP 133/75; O2SAT 100
--- NOTE | 2023-03-10 13:39 | Labor Flowsheet ---
Labor Flowsheet Datetime Report Generated by CPN: 03/10/2023 13:39 Datetime: 03/10/2023 09:11 VITAL SIGNS NBP Sys/Lucia/Mean (mmHg): 133 : 70 : 83 Pulse: 70 Datetime: 03/09/2023 23:25 SpO2 (%): 99 Datetime: 03/08/2023 23:40 Stage of : Datetime: 03/08/2023 22:30 MEDICATIONS Pitocin (milliunits): Discontinued Datetime: 03/08/2023 21:33 Antiemetics/Antacids: Zofran (mg) @ 4 Datetime: 03/08/2023 21:31 PATIENT CARE IV/Blood Work: IV Bolus Started; IV Bolus Given ml @ 250 LaborFlag: Labor Datetime: 03/08/2023 21:30 Frequency (min): 2-3 Comments: unable to assess FHR baseline d/t maternal positioning and pushing Datetime: 03/08/2023 21:15 UTERINE ACTIVITY Monitor Mode: External Quality: Moderate Duration (sec): 50-80 Pattern: Normal: <= 5 Contractions in 10 Minutes Resting Tone (Palpate): Relaxed ASSESSMENT A Monitor Mode: Telemetry Variability: Moderate 6-25 bpm Datetime: 03/08/2023 21:10 STAGE 2 Pushing: Coached on Pushing; No Urge to Push Pushing Position: Pushing with Contractions Datetime: 03/08/2023 21:03 VAGINAL EXAM Dilatation (cm): 10.0 Effacement (%): 100 Station: 0 Exam by: HChadd [place] RN Datetime: 03/08/2023 21:02 Bedside Blood Glucose: 88 I/O Interventions: Clear Liquids Given COMMUNICATION Communication: Report Given to @ Jyame Ag RN Provider Notified (Name): Kimberlyn Falcon Notification Reason: Status Update; Maternal Vital Sign Change Communication Comments: Notified charge nurse, Christianne Rodriguez RN, of current situation. Passed on to CN to make MD aware of decision to hold scheduled insulin and offering little sips of juice. Datetime: 03/08/2023 21:00 Pitocin Checklist: At Least 1 Acceleration of 15 bpm x 15 Seconds in 30 Minutes or Adequate Variabi lity; No More than 1 Late Deceleration Occurred in Past 30 Minutes; No More than 2 Variable Decelerat ions > 60 Seconds in Duration and decreasing >60 bpm in 30 minutes; No More than 5 Uterine Contractio ns in 10 Minutes for any 20 Minute Interval; Uterus Palpates Soft between Contractions FHR Baseline Rate : 125 Accelerations: 15X15 Decelerations: Early; Late Actions for Decelerations: Side to Side Category: Category II Patient Position/Activity: HOB Lowered; Left Tilt; Knee Chest Patient Care Comments: right leg lifted Datetime: 03/08/2023 20:30 Contraction Comments: interrupted UC pattern Datetime: 03/08/2023 20:24 Monitor Interventions for UA: Lester Adjusted Datetime: 03/08/2023 20:16 Temperature (C): 37.0 Datetime: 03/08/2023 20:09 MATERNAL ASSESSMENT Level of Consciousness: Alert DTR's/Clonus: No Clonus Headache: Denies Breath Sounds, Left: Clear and Equal Breath Sounds, Right: Clear and Equal RUQ Epigastric Pain: Denies Datetime: 03/08/2023 20:06 Anesthesia Level Check: T8- Ribs Datetime: 03/08/2023 19:33 Magnesium/Antihypertensives: Ephedrine IV (mg) @ 10 (Annotations: Administered by glory hole tender ) Datetime: 03/08/2023 19:25 Vaginal Bleeding: Normal Show Datetime: 03/08/2023 19:24 Membrane Status: Ruptured Membranes Rupture Method: Artificial Amniotic Fluid Color: Clear Datetime: 03/08/2023 19:08 Epidural Positioning: Side Lying Anesthesia Comments: left tilt Datetime: 03/08/2023 19:01 Epidural Procedure: Test Dose Datetime: 03/08/2023 18:52 ANESTHESIA Anesthesia Plans: Local Datetime: 03/08/2023 16:45 Temperature Route: Oral Datetime: 03/08/2023 15:00 FHR Baseline Changes: No Baseline Change PAIN Pain Presence: Intermittent Pain Type: Cramping Pain Location: Abdomen Datetime: 03/08/2023 14:00 Cervix, Consistency: Soft Cervix, Position: Posterior Cervical Ripening Agents: Barr Balloon; Cytotec @ Medication Comments: 60/40 Datetime: 03/08/2023 12:55 Pain Relief Measures: Comfort Measures Datetime: 03/08/2023 11:00 Oxygen Method: Room Air Datetime: 03/08/2023 10:18 PRE-INDUCTION CHECKLIST Orders on Chart: Yes H Record Available: Yes Indication Charted: Yes Gestational Age Documented: Yes Consent Signed and on Chart: Yes Provider with C/S Priv Aware: Yes Status of Cervix Documented: Yes Presentation Documented: Yes 30min of Monitoring Prior: Yes 2 Accels of 15X15 Present: Yes No Late Decels Present: Yes Less than 2 Variable Decels: Yes Pt Meets Criteria for Induction: Yes Datetime: 03/08/2023 08:27 Provider Reviewed Strip: Yes Strip Reviewed by: Dr. Falcon TEACHING Instructional Method: Verbal Plan of Care: Plan of Care Discussed; Induction Unit Routine: Struthers to Room; Call Carrizales; Bed Labor/Induction: Cervical Ripening Pain Management: Epidural Medications: Cervical Ripening Datetime: 02/02/2023 10:38 Membranes Ruptured Date/Time: 03/08/2023 19:24 Amniotic Fluid Amount: Moderate Amniotic Fluid Odor: None
== END 2023-03-10 13:35 | disposition home or self-care (01) | DRG 807 ==
LOC: WFO 07:30 → FBP 07:32 → WFO 08:37 → FBP 08:38
PROVIDERS: ADMIT Obstetrics & Gynecology Obstetrics; ATTEND Obstetrics & Gynecology Obstetrics
PROC: 0U7C7ZZ Dilation of Cervix, Via Natural or Artificial Opening (ICD-10-PCS; principal; 2023-03-08)
PROC: 10E0XZZ Delivery of Products of Conception, External Approach (ICD-10-PCS; 2023-03-08)
PROC: 3E033VJ Introduction of Other Hormone into Peripheral Vein, Percutaneous Approach (ICD-10-PCS; 2023-03-08)
PROC: 10907ZC Drainage of Amniotic Fluid, Therapeutic from Products of Conception, Via Natural or Artificial Opening (ICD-10-PCS; 2023-03-08)
DX: O13.4 Gestational [pregnancy-induced] hypertension without significant proteinuria, complicating childbirth (principal); Z37.0 Single live birth; O99.214 Obesity complicating childbirth; E66.01 Morbid (severe) obesity due to excess calories; O24.429 Gestational diabetes mellitus in childbirth, unspecified control; Z3A.37 37 weeks gestation of pregnancy
CPT/HCPCS: 59409; 80053; 85025; 86850; 86900; 86901; A9270; J7120

== ENCOUNTER 2023-05-16 10:40 | Outpatient (CLI) | payer MEDICAID ==
[2023-05-16 15:18] LABS: BASOPHILS % (AUTO) 0.3 %; EOSINOPHILS # (AUTO) 0.7 10^3/uL (0.0-0.7); EOSINOPHILS % (AUTO) 11.5 %; HCT - HEMATOCRIT 42.8 % (37.0-47.0); HGB - HEMOGLOBIN 14.1 g/dL (12.0-16.0); LYMPHOCYTES # (AUTO) 1.9 10^3/uL (1.5-3.5); LYMPHOCYTES % (AUTO) 31.1 %; MEAN CORPUSCULAR HEMOGLOBIN 29.8 pg (27.0-31.0); MEAN CORPUSCULAR HGB CONC 32.9 g/dL (32.0-36.0); MEAN CORPUSCULAR VOLUME 90.5 fL (81.0-99.0); MEAN PLATELET VOLUME 9.6 fL (7.9-10.8); MONOCYTES # (AUTO) 0.3 10^3/uL (0.0-1.0); MONOCYTES % (AUTO) 5.6 %; NEUTROPHILS # (AUTO) 3.1 10^3/uL (1.5-6.6); NEUTROPHILS % (AUTO) 51.3 %; PLT - PLATELET COUNT 312 10^3/uL (130-450); RED BLOOD COUNT 4.73 10^6/uL (4.20-5.40); WHITE BLOOD COUNT 6.1 x10^3/uL (4.8-10.8)
[2023-05-16 15:40] LABS: ALBUMIN 4.4 g/dL (3.2-5.5); ALBUMIN/GLOBULIN RATIO 1.5 (1.0-2.2); ALKALINE PHOSPHATASE 65 IU/L (42-121); ALT ALANINE AMINOTRANSFERASE 18 IU/L (10-60); AST ASPARTATE AMINOTRANSFERASE 20 IU/L (10-42); BILIRUBIN,TOTAL 1.3 mg/dL (0.2-1.0); BUN - BLOOD UREA NITROGEN 10 mg/dL (6-20); CALCIUM 9.3 mg/dL (8.5-10.3); CARBON DIOXIDE - CO2 26 mmol/L (21-32); CHLORIDE 104 mmol/L (101-111); CHOL/HDL RATIO 2.8 (<4.4); CHOLESTEROL 143 mg/dL; CREATININE 0.8 mg/dL (0.6-1.3); GFR - MDRD 85 (>89); GLUCOSE 87 mg/dL (74-104); HDL CHOLESTEROL 52 mg/dL; LDL CHOLESTEROL,CALCULATED 72 mg/dL; LDL/HDL RATIO 1.4 (<4.4); POTASSIUM 3.8 mmol/L (3.5-4.5); SODIUM 137 mmol/L (135-145); TOTAL PROTEIN 7.3 g/dL (6.4-8.9); TRIGLYCERIDES 96 mg/dL (48-352); VLDL CHOLESTEROL 19 mg/dL
[2023-05-16 18:06] LABS: THYROID STIMULATING HORMONE 1.02 uIU/mL (0.34-5.60)
[2023-05-16 20:58] LABS: ESTIMATED AVERAGE GLUCOSE 114 mg/dL (70-100); HEMOGLOBIN A1c% 5.6 % (4.27-6.07)
== END 2023-05-16 10:41 | disposition home or self-care (01) ==
LOC: LAB.S 10:40
PROVIDERS: ATTEND Physician Assistant Medical
DX: O24.419 Gestational diabetes mellitus in pregnancy, unspecified control (principal); Z13.9 Encounter for screening, unspecified
CPT/HCPCS: 36415; 80053; 80061; 83036; 83721; 84443; 85025

== ENCOUNTER 2023-07-21 00:50 | Emergency (ER) | payer MEDICAID ==
[2023-07-21] MEDS: IPRATROPIUM/ALBUTEROL 3 ML NEB INH STA (01:40)
[2023-07-21 02:30] LABS: B. PARAPERTUSSIS- RESP PCR PAN NOT DETECTED; B. PERTUSSIS- RESP PCR PANEL NOT DETECTED; C. PNEUMONIAE- RESP PCR PANEL NOT DETECTED; CORONAVIRUS 229E-RESP PCR NOT DETECTED; CORONAVIRUS HKU1-RESP PCR NOT DETECTED; CORONAVIRUS NL63-RESP PCR NOT DETECTED; CORONAVIRUS OC43-RESP PCR NOT DETECTED; HUMAN METAPNEUMOVIRUS NOT DETECTED; INFLUENZA A- RESP PCR PANEL NOT DETECTED; INFLUENZA B - RESP PCR PANEL NOT DETECTED; M. PNEUMONIAE- RESP PCR PANEL NOT DETECTED; PARAINFLUENZA VIRUS 1 NOT DETECTED; PARAINFLUENZA VIRUS 2 NOT DETECTED; PARAINFLUENZA VIRUS 3 NOT DETECTED; PARAINFLUENZA VIRUS 4 NOT DETECTED; RHINOVIRUS/ENTEROVIRUS NOT DETECTED; RSV- RESP PCR PANEL NOT DETECTED; SARS-CoV-2 -RESP PCR PANEL NOT DETECTED
[2023-07-21] MEDS: DEXAMETHASONE 10 MG/ML VIAL PO STA (02:30)
[2023-07-21] MEDS: CHERRY SYRUP 10 ML UDC PO ONE (02:30)
[2023-07-21] MEDS: ALBUTEROL NEB 2.5 MG/3 ML INH STA (02:45)
--- NOTE | 2023-07-21 02:56 | ED Physician Documentation ---
History of Present Illness - Stated complaint Stated Complaint: SOA - Chief complaint Chief Complaint: Resp - History obtained from History obtained from: Patient - Additonal information Additional information: 28yF previously healthy daily vape user p/w 2 weeks of soa, cold symptoms, intermittent dizziness and now with worsening chest tightness and wheezing. denies fever for the past couple days but she did have fever previously. no hemoptysis, leg swelling, recent travel, history of PE or dvt. PD PAST MEDICAL HISTORY - Past Medical History Past Medical History: Yes Cardiovascular: Hypertension Psych: Depression, Anxiety, Panic attacks - Past Surgical History Past Surgical History: No General: Cholecystectomy - Present Medications Home Medications: Ambulatory Orders Medication Instructions Recorded Confirmed Metoclopramide [Reglan] 10 mg PO ACHS PRN #20 tablet 03/02/23 diphenhydrAMINE [Benadryl] 25 mg PO Q8H PRN #30 cap 03/02/23 Albuterol Sulf [Ventolin Hfa 1 - 2 puffs INH Q4HR PRN #18 gm 07/21/23 Inhaler] - Allergies Allergies/Adverse Reactions: Allergies Allergy/AdvReac Type Severity Reaction Status Date / Time No Known Drug Allergies Allergy Verified 07/21/23 01:06 - Social History Does the pt smoke?: No Smoking Status: Never smoker Does the pt drink ETOH?: No Does the pt have substance abuse?: No - Immunizations Immunizations are current?: Yes - POLST Patient has POLST: No PD ED PE NORMAL - Vitals Vital signs reviewed: Yes - General General: Alert and oriented X 3, No acute distress, Well developed/nourished - HEENT HEENT: Atraumatic, PERRL, EOMI - Neck Neck: Supple, no meningeal sign - Cardiac Cardiac: RRR - Respiratory Respiratory: Other (BL expiratory wheezing all lung [place]) - Abdomen Abdomen: Non tender, Non distended Results - Vitals Vitals: Vital Signs - 24 hr 07/21/23 07/21/23 07/21/23 00:50 01:21 01:40 Temperature 36.4 C L Heart Rate 82 114 H 86 Respiratory 24 32 H 20 Rate Blood Pressure 149/110 H 148/104 H O2 Saturation 96 96 07/21/23 02:45 Temperature Heart Rate 81 Respiratory 24 Rate Blood Pressure O2 Saturation Oxygen O2 Source Room air - Labs Labs: Laboratory Tests 07/21/23 01:35 Nasal Adenovirus (PCR) NOT DETECTED Nasal B. parapertussis DNA (PCR) NOT DETECTED Nasal Coronavir 229E PCR NOT DETECTED Nasal Coronavir HKU1 PCR NOT DETECTED Nasal Coronavir NL63 PCR NOT DETECTED Nasal Coronavir OC43 PCR NOT DETECTED Nasal Enterovir/Rhinovir PCR NOT DETECTED Nasal Influenza B PCR NOT DETECTED Nasal Influenza A PCR NOT DETECTED Nasal Parainfluen 1 PCR NOT DETECTED Nasal Parainfluen 2 PCR NOT DETECTED Nasal Parainfluen 3 PCR NOT DETECTED Nasal Parainfluen 4 PCR NOT DETECTED Nasal RSV (PCR) NOT DETECTED Nasal B.pertussis DNA PCR NOT DETECTED Nasal C.pneumoniae (PCR) NOT DETECTED Luis Human Metapneumo PCR NOT DETECTED Nasal M.pneumoniae (PCR) NOT DETECTED Nasal SARS-CoV-2 (PCR) NOT DETECTED PD Medical Decision Making - ED course ED course: 28-year-old woman presented to the ED with shortness of breath, Found to be acutely wheezing on lung exam. Significant improvement status post DuoNeb and 2 sets of albuterol nebulizers with Decadron oral liquid treatment. Her RVP was negative however this is likely viral induced reactive airway disease with. Get a phone RVP. Chest x-ray performed with no evidence of cardiopulmonary disease. Albuterol sent to pharmacy. Return precautions given. Plan to follow-up with primary care provider. Symptomatic care discussed. Departure - Departure Clinical Impression: Wheezing, Shortness of breath Condition: Stable Instructions: ED Reactive Airway Disease Prescriptions: Albuterol Sulf [Ventolin Hfa Inhaler] 1 - 2 puffs INH Q4HR PRN #18 gm PRN Reason: Shortness Of Air/Wheezing Comments: You were seen in the emergency department for wheezing, likely viral induced. You got albuterol and ipratropium breathing treatments as well as a liquid steroid called decadron. [facility] Please follow-up with your primary care provider and return to the emergency department if you have any new or worsening symptoms or other concerns.
[2023-07-21 03:24] VITALS: BP 136/72; O2SAT 97
--- NOTE | 2023-07-21 07:41 | XRAY Report ---
PROCEDURE: Chest 2V INDICATIONS: soa, wheezing TECHNIQUE: 2 views of the chest were acquired. COMPARISON: None. FINDINGS: Surgical changes and devices: None. Lungs and pleura: No pleural effusions or pneumothorax. No acute consolidation. Possible focal 5 mm nodular opacity at the right midlung zone. Mediastinum: Mediastinal contours appear normal. Heart size is normal. Bones and chest wall: No suspicious bony lesions. Overlying soft tissues appear unremarkable. IMPRESSION: 1.No acute cardiopulmonary process. 2.Possible 5 mm pulmonary nodule at the right midlung zone. Consider outpatient CT of the chest for f urther evaluation if the patient is at an increased risk for malignancy. There is no significant discrepancy when compared with the preliminary overnight report. Reviewed by: Fabrice Franz MD on 07/21/2023 7:39 AM PST Approved by: Fabrice Franz MD on 07/21/2023 7:39 AM [facility] Station ID: [id number]
== END 2023-07-21 03:18 | disposition home or self-care (01) ==
LOC: ED 00:50
DX: I10 Essential (primary) hypertension (principal); F17.290 Nicotine dependence, other tobacco product, uncomplicated; R06.02 Shortness of breath; R06.2 Wheezing
CPT/HCPCS: 71046; 87633; 94640; 94664; 99283; 99284; A9270

== ENCOUNTER 2023-08-07 08:43 | Outpatient (CLI) | payer MEDICAID ==
--- NOTE | 2023-08-07 17:35 | CT Report ---
PROCEDURE: Chest WO INDICATIONS: PULMONARY NODULE TECHNIQUE: A CT scan of the chest was performed. Intravenous contrast media was not administered. Images were re corded and evaluated at appropriate window settings. Reformats: axial MIP of the chest, coronal and s agittal. For radiation dose reduction, the following was used: automated exposure control, adjustment of mA and/or kV according to patient size. COMPARISON: Chest radiograph on July 21, 2023. FINDINGS: Image quality: Diagnostic. Chest wall and lower neck: No thyroid nodule which requires sonographic follow up. No axillary or sup raclavicular adenopathy by size. Lungs and pleura: No consolidation. No pleural effusions. No pneumothorax. A few scattered solid pul monary nodules which are noncalcified measuring up to 5 mm. For example: -Right upper lobe, measures 4 mm (4/43). -Right lower lobe, measures 5 mm (4/46) -Left lower lobe subpleural, measures 3 mm (4/65). Mediastinum: Heart size is normal. No pericardial effusion. No large vessel abnormality. No mediastin al adenopathy by size criteria. Small amount of residual thymic tissue in the anterior mediastinum, normal. Bones: No aggressive osseous abnormality. No acute fracture. Upper Abdomen: Cholecystectomy. IMPRESSION: A few scattered solid, noncalcified pulmonary nodules measuring up to 5 mm. If there is no history of malignancy, based on patient's age, these are likely benign and do not meet criteria for Fleischner guidelines/follow-up. Reviewed by: Scott Reeves MD on 08/07/2023 5:34 PM PDT Approved by: Scott Reeves MD on 08/07/2023 5:34 PM PDT Station ID: [id number]
== END 2023-08-07 08:44 | disposition home or self-care (01) ==
LOC: DI 08:43
PROVIDERS: ATTEND Physician Assistant Medical
DX: R91.8 Other nonspecific abnormal finding of lung field (principal)